=== PATIENT | male | born 1965 | race Caucasian/White ===

== ENCOUNTER 2016-09-27 16:12 | Emergency (ER) | payer MEDICAID ==
[2016-09-27 16:34] VITALS: RESP 16
[2016-09-27] MEDS ORDERED: NS 1,000 ML IV ONE (16:55)
[2016-09-27] MEDS ORDERED: ONDANSETRON 4 MG/2 ML VIAL IVP ONE (16:55)
[2016-09-27] MEDS ORDERED: fentaNYL 100 MCG/2 ML INJ IVP ONE ×2 (17:05→18:24)
[2016-09-27] MEDS ORDERED: methylPREDNISolone SOD SUCC 125 MG/2 ML VIAL IVP ONE (17:06)
--- NOTE | 2016-09-27 17:11 | EDPHY ---
H & P Stated Complaint: LLQ abd pain, hx ulcerative cholitis, blood in stool Source: Patient Exam Limitations: No limitations - Personal History Current Tetanus/Diphtheria Vaccine: Yes Current Tetanus Diphtheria and Acellular Pertussis (TDAP): Yes Tetanus Vaccine Date: 2012 - Medical/Surgical History Hx Asthma: No Hx Chronic Respiratory Disease: No Hx Diabetes: No Hx Cardiac Disease: No Hx Renal Disease: No Hx Cirrhosis: No Hx Alcoholism: No Hx HIV/AIDS: No Hx Splenectomy or Spleen Trauma: No Other PMH: Ulcerative coliitis, anxiety, chronic pain, clavicle fx, hernia repair - Social History Smoking Status: Never smoked Time Seen by Provider: 09/27/16 16:55 HPI/ROS: CHIEF COMPLAINT: Abdominal pain HISTORY OF PRESENT ILLNESS: Patient complains of 1-2 days of lower abdominal pain. Gradual onset. Constant duration. Severe pain at this time. Radiates through to the back. Worse with palpation or movement. Also worse with attempted bowel movements. Mild cramping sensation and tenesmus. Some blood in the stool occasionally. No fever or chills. No urinary complaints. History of ulcerative colitis flare several months ago. He does have prednisone for flare, but he lost it thus he has not started it. He takes as a call routinely. Does not have a GI physician here in [place] as he recently moved here and is awaiting appointment next month. No other medical diagnoses. No other associated complaints or modifying factors. PREVIOUS ABDOMINAL SURGERIES/DIAGNOSES: Ulcerative colitis. No abdominal surgeries. Last colonoscopy 3 years ago with polyps and diverticula. REVIEW OF SYSTEMS: Ten systems reviewed and are negative unless otherwise noted in the HPI EXAMINATION: General Appearance: Alert, no distress Head: normocephalic, atraumatic Eyes: Pupils equal and round, no conjunctival pallor or injection ENT, Mouth: Mucous membranes moist Neck: Normal inspection, supple, non-tender Respiratory: Lungs are clear to auscultation. No wheezing, rhonchi or crackles. Cardiovascular: Regular rate and rhythm. No murmur. Pulses intact distally. Gastrointestinal: Abdomen is soft. Tender in the lower quadrants. No rigidity. No distention. No tympany. No CVA tenderness. Voluntary guarding in the lower quadrants Back: non-tender, no bony abnormalities Neurological: A&O, nonfocal, normal gait. GCS 15. Skin: Warm and dry, no rash Extremities: Nontender, no pedal edema Psychiatric: Mood and affect normal DIFFERENTIAL DIAGNOSES: Including but not limited to ulcerative colitis flare, diverticulitis, colitis, enteritis, ureterolithiasis, acute abdomen MDM: 5:07 p.m. Lower abdominal pain of 2 days duration. Examination history suggest ulcerative colitis versus diverticulitis. CT scan, IV fluids, laboratory studies have been ordered. He is in no acute distress. Nonacute abdomen. 6:00 p.m. Laboratory studies are within normal limits. The CT scan is pending. 6:09 p.m. Contacted by radiologist Dr. Parra regarding CT scan of the abdomen and pelvis. He reports some thickening of the transverse and partially of the descending colon. No perforation. No abscess. 6:24 p.m. I have re-evaluated the patient. His pain is not changed. I have ordered a 2nd dose of pain medication. I offered admission for pain control and likely for IV steroid. He has declined. He prefers to be discharged home. He is capable making the decisions and we did discuss risks, benefits and alternatives. I will page GI to discuss outpatient management. 6:38 p.m. I discussed the case with on-call GI physician Dr. Zimmerman. I informed her of the patient's complaint, laboratory studies, vital signs and findings on the CT scan of the abdomen and pelvis. I informed her that I offered admission to the patient but he has declined. I requested outpatient management. She recommends that the patient take a prednisone steroid taper. This would be 40 mg once daily for 7 days, decreasing by 10 mg per week. She also recommends checking his C diff if possible. I discussed this with the patient and he declines the C diff test as he has not had any diarrhea today, nor does he want to stay for the test. I informed him that he could return to the emergency department should he change his mind. We would here to the recommendations of steroids, and he will be referred to her clinic for outpatient care. He is discharged home in stable condition with a prescription for pain medication from previous physician. ED Precautions: Worsening pain. Fever. Bloody stools. Bloody emesis. Constipation or diarrhea. SUPERVISION: Patient was evaluated in conjunction with the supervising physician. Please see their note for details. (Jaxon Amaral) Constitutional: Initial Vital Signs Temperature (C) 36.9 C 09/27/16 16:32 Heart Rate 78 09/27/16 16:32 Respiratory Rate 16 09/27/16 16:32 Blood Pressure 165/95 H 09/27/16 16:32 O2 Sat (%) 97 09/27/16 16:32 O2 Delivery Mode Room Air Allergies/Adverse Reactions: morphine Allergy (Unknown, Verified 08/19/15 12:29) Home Medications: Medication Instructions Recorded Mesalamine [Asacol 400 mg] 04/08/14 methylPREDNISolone [Medrol Dose 1 each PO AD #1 ea 03/28/16 Marvin] predniSONE [predniSONE TAPER] 10 mg PO AD #70 ea 09/27/16 Medical Decision Making ED Course/Re-evaluation: I did not see this patient while he was in the emergency department. However his care was discussed with the PA while the patient was in the department. I agree with treatment plan and management (Emanuel eBckford) Other Provider: I was not involved in the care of this patient, Dr Beckford was the supervising physician. (Jane Maldonado) - Data Points Laboratory Results: Laboratory Results 09/27/16 17:15 09/27/16 17:15 Medications Given: Discontinued Medications Fentanyl (Sublimaze) 100 mcg IVP EDNOW ONE Stop: 09/27/16 17:06 Last Admin: 09/27/16 17:38 Dose: 100 mcg Fentanyl (Sublimaze) 100 mcg IVP EDNOW ONE Stop: 09/27/16 18:25 Last Admin: 09/27/16 18:27 Dose: 100 mcg Sodium Chloride (Ns) 1,000 mls @ 0 mls/hr IV ONCE ONE PRN Reason: Wide Open Stop: 09/27/16 16:56 Last Admin: 09/27/16 17:24 Dose: 1,000 mls Methylprednisolone Sodium Succinate (Solu-Medrol) 125 mg IVP EDNOW ONE Stop: 09/27/16 17:07 Last Admin: 09/27/16 17:38 Dose: 125 mg Ondansetron HCl (Zofran) 4 mg IVP EDNOW ONE Stop: 09/27/16 16:56 Last Admin: 09/27/16 17:38 Dose: 4 mg Departure - Departure Disposition: Home, Routine, Self-Care Clinical Impression: Colitis Condition: Good Instructions: Ulcerative Colitis (ED), Colitis (ED) Additional Instructions: Steroids as discussed. Contact GI physician in the morning for definitive care. Return here for any onset of diarrhea, fever or worsening pain Referrals: Kris Tejeda MD [Primary Care Provider] - As per Instructions Brenda Zimmerman MD [Medical Doctor] - As per Instructions Prescriptions: predniSONE [predniSONE TAPER] 10 mg PO AD #70 ea
[2016-09-27 17:32] LABS: % IMMATURE GRANULYOCYTES 0.4 % (0.0-1.1); ABSOLUTE IMMATURE GRANULOCYTES 0.03 10^3/uL (0.00-0.10); ADD DIFF? NO; ADD MORPH? NO; ADD SCAN? NO; ATYPICAL LYMPHOCYTE FLAG 10 (0-99); FRAGMENT RBC FLAG 0 (0-99); HEMATOCRIT 43.8 % (40.0-51.0); HEMOGLOBIN 15.5 g/dL (13.7-17.5); LEFT SHIFT FLG 0 (0-99); LIPEMIA HEMOLYSIS FLAG 90 (0-99); MEAN CELL HEMOGLOBIN 33.8 pg (27.9-34.1); MEAN CELL HEMOGLOBIN CONCENTR. 35.4 g/dL (32.4-36.7); MEAN CELL VOLUME 95.6 fL (81.5-99.8); MEAN PLATELET VOLUME 10.2 fL (8.7-11.7); PLATELET CLUMPS FLAG 10 (0-99); PLATELET COUNT 228 10^3/uL (150-400); RED BLOOD CELL COUNT 4.58 10^6/uL (4.40-6.38); RED CELL DISTRIBUTION WIDTH 12.6 % (11.5-15.2)
[2016-09-27 17:39] LABS: ALANINE AMINOTRANSFERASE 25 IU/L (21-72); ALBUMIN 4.6 g/dL (3.5-5.0); ALKALINE PHOSPHATASE 69 IU/L (38-126); ANION GAP 11 mEq/L (8-16); ASPARTATE AMINOTRANSFERASE 23 IU/L (17-59); BILIRUBIN,TOTAL 1.2 mg/dL (0.1-1.4); BILIRUBIN-CONJUGATED 0.4 mg/dL (0.0-0.5); BILIRUBIN-UNCONJUGATED 0.8 mg/dL (0.0-1.1); CALCIUM 9.2 mg/dL (8.5-10.4); CARBON DIOXIDE 25 mEq/l (22-31); CHLORIDE 105 mEq/L (97-110); GLOMERULAR FILTRATION RATE > 60; GLUCOSE 103 mg/dL (70-100); POTASSIUM 4.1 mEq/L (3.5-5.2); SODIUM 141 mEq/L (134-144); TOTAL PROTEIN 7.1 g/dL (6.3-8.2)
[2016-09-27] MEDS ORDERED: IOPAMIDOL (ISOVUE-300) 100 ML BTL ONE (17:43)
[2016-09-27 19:20] VITALS: BP 125/74; PULSE 81; TEMP 97.9; O2SAT 95
== END 2016-09-27 19:19 | disposition home or self-care (01) ==
DX: K52.9 Noninfective gastroenteritis and colitis, unspecified (principal)
CPT/HCPCS: 82947-QW; 96374; J2405; J3010; Q9967

== ENCOUNTER 2016-09-29 20:22 | Inpatient (IN) | payer MEDICAID ==
[2016-09-29] MEDS ORDERED: ONDANSETRON 4 MG/2 ML VIAL IVP ONE ×2 (20:40→22:47)
[2016-09-29] MEDS ORDERED: methylPREDNISolone SOD SUCC 40 MG/ML VIAL IVP ONE (21:47)
[2016-09-29] MEDS ORDERED: NS 1,000 ML IV ONE (21:47)
[2016-09-29] MEDS ORDERED: LORazepam 2 MG/ML INJ IM ONE (21:48)
--- NOTE | 2016-09-29 21:51 | EDPHY ---
H & P Stated Complaint: LLQ abd pain- hx of UC - Personal History Tetanus Vaccine Date: 2012 - Medical/Surgical History Hx Asthma: No Hx Chronic Respiratory Disease: No Hx Diabetes: No Hx Cardiac Disease: No Hx Renal Disease: No Hx Cirrhosis: No Hx Alcoholism: No Hx HIV/AIDS: No Hx Splenectomy or Spleen Trauma: No Other PMH: Ulcerative coliitis, anxiety, chronic pain, clavicle fx, hernia repair - Social History Smoking Status: Never smoked Time Seen by Provider: 09/29/16 21:27 HPI/ROS: CHIEF COMPLAINT: continued left lower quadrant abdominal pain HISTORY OF PRESENT ILLNESS: 51-year-old male, homeless, history of ulcerative colitis complaining of continued left lower quadrant abdominal pain. He was seen emergency department 48 hours ago for same complaint which point he had CT imaging, reports available in packs. At that time he was offered admission but declined. He returns to the [facility] today stating I should have stayed in the hospital. He has continued abdominal pain, nausea, vomiting, diarrhea. REVIEW OF SYSTEMS: A ten point review of systems was performed and is negative with the exception of the items mentioned in the HPI PAST MEDICAL & SURGICAL HISTORY: Ulcerative colitis SOCIAL HISTORY: homeless. PHYSICAL EXAM (Prior to examination, patient consented to physical exam, hands were washed and my usual and customary physical exam procedures followed) 1) GENERAL: Well-developed, well-nourished, alert and oriented. Appears uncomfortable, crying. 2) HEAD: Normocephalic, atraumatic 3) HEENT: Pupils equal, round, reactive to light bilaterally. Sclera anicteric. 4) NECK: Full range of motion, no meningeal signs. 5) LUNGS: Clear auscultation bilaterally, no wheezes, no rhonchi, no retractions. 6) HEART: Regular rate and rhythm, no murmur, no heave, no gallop. 7) ABDOMEN: Guarding abdomen tender to palpation left lower quadrant, 8) MUSCULOSKELETAL: Moving all extremities, no focal areas of tenderness, no obvious trauma. No peripheral edema or discoloration. 9) BACK: No CVA tenderness, no midline vertebral tenderness, no fluctuance, no step-off, no obvious trauma, no visual or palpable abnormality. 10) SKIN: No rash, no petechiae. 11) : Normal male external genitalia bilateral testicles nontender bilateral cremasteric reflex present and brisk with no high-riding testicle.. DIFFERENTIAL DIAGNOSIS: in no particular order (Jayant Webster) Constitutional: Initial Vital Signs Temperature (C) 36.9 C 09/29/16 20:28 Heart Rate 94 09/29/16 20:28 Respiratory Rate 20 09/29/16 20:28 Blood Pressure 169/103 H 09/29/16 20:28 O2 Sat (%) 92 09/29/16 20:28 O2 Delivery Mode Room Air Allergies/Adverse Reactions: morphine Allergy (Unknown, Verified 09/29/16 20:28) Home Medications: Medication Instructions Recorded Mesalamine [Asacol 400 mg] 04/08/14 methylPREDNISolone [Medrol Dose 1 each PO AD #1 ea 03/28/16 Marvin] predniSONE [predniSONE TAPER] 10 mg PO AD #70 ea 09/27/16 Medical Decision Making ED Course/Re-evaluation: 10:14 p.m.: Phone consultation with hospitalist Dr. Diaz who will admit patient (Jayant Webster) Other Provider: PHYSICIAN DOCUMENTATION: The patient was evaluated and managed by the Physician Car Varnisher and myself. I have reviewed the chart and agree with the findings and plan of care as documented. In addition, I examined the patient myself at 2142. History confirmed as history of ulcerative colitis, here 2 days ago and was recommended admission but declined. Physical findings as follows: Mild abdominal tenderness but no rebound or guarding. Dr. Maldonado note from 2 days ago personally reviewed. Apparently she discussed with Dr. Zimmerman who recommended admission for pain control and IV steroids. Admission tonight, patient is amenable. I am the secondary supervising physician. (Juventino Villalobos) - Data Points Laboratory Results: Laboratory Results 09/29/16 20:25 09/29/16 20:25 09/29/16 09/29/16 20:25 20:25 WBC 8.47 10^3/uL 10^3/uL (3.80-9.50) RBC 4.90 10^6/uL 10^6/uL (4.40-6.38) Hgb 16.3 g/dL g/dL (13.7-17.5) Hct 46.8 % % (40.0-51.0) MCV 95.5 fL fL (81.5-99.8) MCH 33.3 pg pg (27.9-34.1) MCHC 34.8 g/dL g/dL (32.4-36.7) RDW 12.6 % % (11.5-15.2) Plt Count 280 10^3/uL D 10^3/uL (150-400) MPV 10.5 fL fL (8.7-11.7) Neut % (Auto) 75.0 % H % (39.3-74.2) Lymph % (Auto) 19.8 % % (15.0-45.0) Hamlin % (Auto) 3.4 % L % (4.5-13.0) Eos % (Auto) 0.4 % L % (0.6-7.6) Baso % (Auto) 1.2 % % (0.3-1.7) Nucleat RBC Rel Count 0.0 % % (0.0-0.2) Absolute Neuts (auto) 6.35 10^3/uL 10^3/uL (1.70-6.50) Absolute Lymphs (auto) 1.68 10^3/uL 10^3/uL (1.00-3.00) Absolute Monos (auto) 0.29 10^3/uL L 10^3/uL (0.30-0.80) Absolute Eos (auto) 0.03 10^3/uL 10^3/uL (0.03-0.40) Absolute Basos (auto) 0.10 10^3/uL 10^3/uL (0.02-0.10) Absolute Nucleated RBC 0.00 10^3/uL 10^3/uL (0-0.01) Immature Gran % 0.2 % % (0.0-1.1) Immature Gran # 0.02 10^3/uL 10^3/uL (0.00-0.10) Sodium 149 mEq/L H mEq/L (134-144) Potassium 4.2 mEq/L mEq/L (3.5-5.2) Chloride 108 mEq/L mEq/L (97-110) Carbon Dioxide 21 mEq/l L mEq/l (22-31) Anion Gap 20 mEq/L H mEq/L (8-16) BUN 12 mg/dL mg/dL (7-23) Creatinine 1.1 mg/dL mg/dL (0.7-1.3) Estimated GFR > 60 Glucose 124 mg/dL H mg/dL (70-100) Calcium 9.6 mg/dL mg/dL (8.5-10.4) Total Bilirubin 0.7 mg/dL mg/dL (0.1-1.4) Conjugated Bilirubin 0.5 mg/dL mg/dL (0.0-0.5) Unconjugated Bilirubin 0.2 mg/dL mg/dL (0.0-1.1) AST 24 IU/L IU/L (17-59) ALT 21 IU/L IU/L (21-72) Alkaline Phosphatase 88 IU/L IU/L (38-126) Total Protein 7.8 g/dL g/dL (6.3-8.2) Albumin 5.1 g/dL H g/dL (3.5-5.0) Lipase 191.0 IU/L IU/L (23-300) Medications Given: Discontinued Medications Sodium Chloride (Ns) 1,000 mls @ 0 mls/hr IV ONCE ONE PRN Reason: Wide Open Stop: 09/29/16 21:48 Last Admin: 09/29/16 22:23 Dose: 1,000 mls Methylprednisolone Sodium Succinate (Solu-Medrol) 80 mg IVP EDNOW ONE Stop: 09/29/16 21:48 Last Admin: 09/29/16 22:22 Dose: 80 mg Ondansetron HCl (Zofran) 4 mg IVP EDNOW ONE Stop: 09/29/16 20:41 Last Admin: 09/29/16 20:45 Dose: 4 mg Departure - Departure Disposition: [facility] Clinical Impression: Ulcerative colitis Qualifiers: Ulcerative colitis location: ulcerative rectosigmoiditis Digestive disease complication type: without complication Qualified Code(s): K51.30 - Ulcerative ( chronic) rectosigmoiditis without complications Condition: Fair
[2016-09-29 21:56] LABS: % IMMATURE GRANULYOCYTES 0.2 % (0.0-1.1); ABSOLUTE IMMATURE GRANULOCYTES 0.02 10^3/uL (0.00-0.10); ADD DIFF? NO; ADD MORPH? NO; ADD SCAN? NO; ATYPICAL LYMPHOCYTE FLAG 0 (0-99); FRAGMENT RBC FLAG 0 (0-99); HEMATOCRIT 46.8 % (40.0-51.0); HEMOGLOBIN 16.3 g/dL (13.7-17.5); LEFT SHIFT FLG 0 (0-99); LIPEMIA HEMOLYSIS FLAG 90 (0-99); MEAN CELL HEMOGLOBIN 33.3 pg (27.9-34.1); MEAN CELL HEMOGLOBIN CONCENTR. 34.8 g/dL (32.4-36.7); MEAN CELL VOLUME 95.5 fL (81.5-99.8); MEAN PLATELET VOLUME 10.5 fL (8.7-11.7); PLATELET CLUMPS FLAG 0 (0-99); PLATELET COUNT 280 10^3/uL (150-400); RED CELL DISTRIBUTION WIDTH 12.6 % (11.5-15.2)
[2016-09-29 21:57] LABS: ALANINE AMINOTRANSFERASE 21 IU/L (21-72); ALBUMIN 5.1 g/dL (3.5-5.0); ALKALINE PHOSPHATASE 88 IU/L (38-126); ANION GAP 20 mEq/L (8-16); ASPARTATE AMINOTRANSFERASE 24 IU/L (17-59); BILIRUBIN,TOTAL 0.7 mg/dL (0.1-1.4); BILIRUBIN-CONJUGATED 0.5 mg/dL (0.0-0.5); BILIRUBIN-UNCONJUGATED 0.2 mg/dL (0.0-1.1); CALCIUM 9.6 mg/dL (8.5-10.4); CARBON DIOXIDE 21 mEq/l (22-31); CHLORIDE 108 mEq/L (97-110); CREATININE 1.1 mg/dL (0.7-1.3); GLOMERULAR FILTRATION RATE > 60; GLUCOSE 124 mg/dL (70-100); POTASSIUM 4.2 mEq/L (3.5-5.2); SODIUM 149 mEq/L (134-144); TOTAL PROTEIN 7.8 g/dL (6.3-8.2)
[2016-09-29] MEDS ORDERED: ACETAMINOPHEN 325 MG TAB PO PRN (22:33)
[2016-09-29] MEDS ORDERED: PROMETHAZINE HCL 25 MG/ML INJ IVP PRN (22:33)
[2016-09-29] MEDS ORDERED: HYDROmorphONE/DILAUDID 1 MG/ML SYR IVP ONE (22:47)
--- NOTE | 2016-09-29 23:13 | GHP ---
[f rep st] HISTORY AND PHYSICAL DATE OF ADMISSION: 09/29/2016 CHIEF COMPLAINT: Abdominal pain. HISTORY OF PRESENT ILLNESS: This is a 51-year-old male with history of ulcerative colitis and chron ic opioid dependence, who presented to the emergency department on 09/27/2016 with abdominal pain. The patient was offered admission, but decided to leave. He was started on a Medrol Dosepak, which he says he filled and has not been helping. Over the past day, he reports worsening severe pain in his left lower abdomen and rectum. It is ass ociated with some chills and fatigue. He denies any fever. Three days ago, he had some loose bowel movements and passed some blood, but has not been having diarrhea since. He has been vomiting. Interestingly enough, he has been out of his fentanyl for the past few days. He is taking oxycodone sparingly. He says he ran out of fentanyl since the patches have "been falling off." PAST MEDICAL HISTORY: 1. Ulcerative colitis diagnosed at [facility]. 2. Chronic opioid dependence due to left clavicle fracture that happened 2-1/2 years ago. PAST SURGICAL HISTORY: Denies. HOME MEDICATIONS: Refer to [facility] for details. ALLERGIES: Morphine. SOCIAL HISTORY: Patient is engaged. He denies any alcohol, tobacco, or illicit drug use. FAMILY HISTORY: Reviewed and noncontributory. REVIEW OF SYSTEMS: Comprehensive 10-point review of systems was done and is negative except for as mentioned in the HPI. PHYSICAL EXAM: VITAL SIGNS: Blood pressure 169/103, pulse 94, respiratory rate 20, O2 saturation 9 2% on room air, temperature afebrile. GENERAL: No acute distress. HEAD: Normocephalic, atraumati c. EYES: PERRLA. Sclerae anicteric. MOUTH: Moist mucous membranes. NECK: Supple. No lymphade nopathy. CARDIOVASCULAR: S1-S2. No JVD. No lower extremity edema. PULMONARY: Lungs are clear. No wheezes, rales, or rhonchi. ABDOMEN: Soft, nondistended. There is tenderness in all 4 quadran ts without rebound or guarding. Bowel sounds are diminished. EXTREMITIES: No clubbing or cyanosis . NEURO: Cranial nerves 2-12 grossly intact. No focal motor or sensory deficits. DIAGNOSTICS: WBCs 8.4, hemoglobin 16.3, hematocrit 46.8, platelets 280. Sodium 149, potassium 4.2 chloride 108, CO2 21, BUN 12, creatinine 1.1, anion gap is 20, glucose 124. LFTs unremarkable. ASSESSMENT AND PLAN: This is a 51-year-old male with history of ulcerative colitis presenting with: 1. Acute abdominal pain. Unclear etiology. Differential includes ulcerative colitis flare versus other. Plan: The patient will be watched overnight. If his abdominal exam worsens or if his pain worsens, I think it would be reasonable to obtain a CT of his abdomen and pelvis. At this point, I think it is fair to hold off given the fact that he is afebrile with normal white count. We will ch blake inflammatory markers in the morning. I have not called GI since there is no potato peeler listed to be pupil personnel worker. 2. Hypernatremia likely due to dehydration. Plan: Start hypotonic fluids and monitor. 3. Mild metabolic acidosis. CO2 of 21 and gap of 20. Plan: Start IV fluids and repeat chemistry in the morning. 4. History of opioid dependency in the setting of recently running out of his fentanyl. Plan: will resume his home dose of Duragesic patch, as well as oxycodone. His pain may be a result of opiate withdrawal. 5. Chronic left clavicle fracture. Plan: Recommend outpatient followup with Orthopedics for repai r as scheduled. 6. The patient is low risk for venous thromboembolism, and I have recommended ambulation and sequen tial compression devices while in bed. /[id number]/MODL
[2016-09-29] MEDS: 1/2 NS 1,000 ML IV SCH (23:53)
[2016-09-29] MEDS: oxyCODONE IR 5 MG TAB PO PRN (23:53)
[2016-09-30] MEDS: LORazepam 0.5 MG TAB PO PRN ×2 (00:14→02:27)
[2016-09-30] MEDS: fentaNYL 25 MCG PATCH TD SCH ×2 (00:22→17:26)
[2016-09-30] MEDS: oxyCODONE IR 5 MG TAB PO PRN ×3 (02:27→15:03)
[2016-09-30 04:48] LABS: % IMMATURE GRANULYOCYTES 0.4 % (0.0-1.1); ABSOLUTE IMMATURE GRANULOCYTES 0.02 10^3/uL (0.00-0.10); ADD DIFF? NO; ADD MORPH? NO; ADD SCAN? NO; ATYPICAL LYMPHOCYTE FLAG 0 (0-99); FRAGMENT RBC FLAG 0 (0-99); HEMATOCRIT 44.5 % (40.0-51.0); HEMOGLOBIN 15.6 g/dL (13.7-17.5); LEFT SHIFT FLG 0 (0-99); LIPEMIA HEMOLYSIS FLAG 90 (0-99); MEAN CELL HEMOGLOBIN 33.5 pg (27.9-34.1); MEAN CELL HEMOGLOBIN CONCENTR. 35.1 g/dL (32.4-36.7); MEAN CELL VOLUME 95.5 fL (81.5-99.8); MEAN PLATELET VOLUME 10.1 fL (8.7-11.7); PLATELET CLUMPS FLAG 10 (0-99); PLATELET COUNT 237 10^3/uL (150-400); RED BLOOD CELL COUNT 4.66 10^6/uL (4.40-6.38); RED CELL DISTRIBUTION WIDTH 12.5 % (11.5-15.2)
[2016-09-30 05:00] LABS: ANION GAP 16 mEq/L (8-16); C-REACTIVE PROTEIN < 5.0 mg/L (<10.0); CALCIUM 8.6 mg/dL (8.5-10.4); CARBON DIOXIDE 20 mEq/l (22-31); CHLORIDE 107 mEq/L (97-110); CREATININE 0.9 mg/dL (0.7-1.3); GLOMERULAR FILTRATION RATE > 60; GLUCOSE 133 mg/dL (70-100); POTASSIUM 4.3 mEq/L (3.5-5.2); SODIUM 143 mEq/L (134-144)
[2016-09-30 05:42] LABS: SEDIMENTATION RATE 5 MM/HR (0-15)
--- NOTE | 2016-09-30 08:29 | HOSPPROG ---
Hospitalist Progress Note Assessment/Plan: #Acute on chronic abdominal -due to acute Crohn's flare. CT 09/27 with colitis involving transverse/ descending colon -pain improved overnight with IV Solumedrol -discussed case with GI. If pain persists and negative GI panel, will proceed with scope -check GI PCR #Chronic opioid use -Fentanyl for clavicle fracture #Hypernatremia: resolved. due to dehydration #Diet: ADAT #DVT ppx: low-rsik, ambulating #Disp: warrants inpt admission with ongoing pain requiring IV steroids, IVFs Subjective: still c/o LLQ pain. No BM Objective: Vital Signs Temp Pulse Resp BP Pulse Ox 36.5 C 93 16 116/75 96 09/30/16 08:21 09/30/16 08:21 09/30/16 08:21 09/30/16 08:21 09/30/16 08:21 Laboratory Results 09/30/16 04:21 09/30/16 04:21 09/29/16 09/30/16 10/01/16 05:59 05:59 05:59 Intake Total 1650 Output Total 800 Balance 850 - Physical Exam Constitutional: no apparent distress Eyes: PERRL Ears, Nose, Mouth, Throat: moist mucous membranes Cardiovascular: regular rate and rhythym Respiratory: no respiratory distress, no rales or rhonchi Gastrointestinal: normoactive bowel sounds, tenderness (greater in LLQ. Mild guarding, no rebound) Genitourinary: no bladder fullness Skin: warm Musculoskeletal: full muscle strength Neurologic: AAOx3, CN II-XII Intact Psychiatric: interacting appropriately ICD10 Worksheet Patient Problems: Problems Problem Status Onset Ulcerative colitis Acute Abscess Acute Methicillin resistant Staphylococcus aureus infection Acute
[2016-09-30] MEDS: methylPREDNISolone SOD SUCC 40 MG/ML VIAL IVP SCH ×2 (08:37→19:57)
[2016-09-30] MEDS: 1/2 NS 1,000 ML IV SCH ×2 (08:42→17:30)
[2016-09-30] MEDS: HYDROmorphONE/DILAUDID 1 MG/ML SYR IVP PRN ×3 (10:43→19:58)
[2016-09-30] MEDS ORDERED: NON-FORMULARY NEW DRUG (Ranitidine Hcl [Zantac] 150 MG) PO PRN (12:58)
[2016-09-30] MEDS ORDERED: Herbals/Supplements -Info Only PO SCH (13:00)
[2016-09-30] MEDS ORDERED: FAMOTIDINE 20 MG TAB PO PRN (13:03)
[2016-10-01] MEDS: HYDROmorphONE/DILAUDID 1 MG/ML SYR IVP PRN ×3 (00:06→20:02)
[2016-10-01] MEDS: 1/2 NS 1,000 ML IV SCH (03:11)
[2016-10-01 05:00] LABS: ANION GAP 8 mEq/L (8-16); CARBON DIOXIDE 25 mEq/l (22-31); CHLORIDE 104 mEq/L (97-110); CREATININE 0.7 mg/dL (0.7-1.3); GLOMERULAR FILTRATION RATE > 60; GLUCOSE 128 mg/dL (70-100); POTASSIUM 4.4 mEq/L (3.5-5.2); SODIUM 137 mEq/L (134-144)
--- NOTE | 2016-10-01 08:56 | HOSPPROG ---
Hospitalist Progress Note Assessment/Plan: #Acute on chronic abdominal -due to acute Crohn's flare. CT 09/27 with colitis involving transverse/ descending colon -pain improved overnight with IV Solumedrol -discussed case with GI. GI PCR pending -Plan for scope in morning #Chronic opioid use -Fentanyl for clavicle fracture #Hypernatremia: resolved. due to dehydration #Diet: ADAT #DVT ppx: low-rsik, ambulating #Disp: warrants inpt admission with ongoing pain requiring IV steroids, IVFs Subjective: pain improved with IV steroids Objective: Vital Signs Temp Pulse Resp BP Pulse Ox 36.3 C 58 L 16 116/76 99 10/01/16 08:23 10/01/16 08:23 10/01/16 08:23 10/01/16 08:23 10/01/16 08:23 Laboratory Results 09/30/16 04:21 10/01/16 04:13 09/30/16 10/01/16 10/02/16 05:59 05:59 05:59 Intake Total 1650 3431 Output Total 800 Balance 850 3431 - Physical Exam Constitutional: no apparent distress Eyes: PERRL Ears, Nose, Mouth, Throat: moist mucous membranes Cardiovascular: regular rate and rhythym, no murmur, rub, or gallop Respiratory: no respiratory distress, no rales or rhonchi Gastrointestinal: normoactive bowel sounds, other (mild left lower quadrant) Genitourinary: no bladder fullness Skin: warm Musculoskeletal: full muscle strength Neurologic: AAOx3 Psychiatric: interacting appropriately ICD10 Worksheet Patient Problems: Problems Problem Status Onset Ulcerative colitis Acute Abscess Acute Methicillin resistant Staphylococcus aureus infection Acute
[2016-10-01] MEDS ORDERED: NON-FORMULARY NEW DRUG (Vitamin B Complex [Super B-50 Complex] 1 EACH) PO SCH (09:00)
[2016-10-01] MEDS: methylPREDNISolone SOD SUCC 40 MG/ML VIAL IVP SCH ×2 (10:20→21:42)
[2016-10-01] MEDS ORDERED: GOLYTELY 4000 ML BTL PO ONE ×2 (13:03→16:15)
--- NOTE | 2016-10-01 13:49 | GCON ---
[f rep st] CONSULTATION DATE OF CONSULTATION: 10/01/2016 CHIEF COMPLAINT: Abdominal pain. HISTORY OF PRESENT ILLNESS: I am asked to see the patient in consultation by Dr. Light for a chief complaint of abdominal pain. The patient is a 51-year-old with a long history of ulcerative coliti s, originally diagnosed in 1994 per his history although we have no old records. He states that it has mostly been left-sided. He states that every time they tried to do a colonoscopy, they have not been able to do a full colonoscopy. His last colonoscopy was in 2009. He gets flares about every couple months, which he treats with mesalamine. He has been on prednisone in the past. He also jesus alberto cribes being treated with enemas and suppositories, which he felt has worked well previously. Patient presented to the emergency room earlier this week with abdominal pain. CT scan showed nonsp ecific colitis involving the transverse and descending colon. He was treated with prednisone, howev er, failed and returned with increasing abdominal pain. He has been having initially some loose sto ols, but now he has had no bowel movement for 4 days. He did note some bright red blood with his la st bowel movement. No fevers or chills. He has abdominal pain, primarily epigastric radiating to t he left side and down into his left pelvis. He is passing gas. He has had some nausea originally, which is now improved. ALLERGIES: Morphine. MEDICATIONS: Mesalamine. He takes Asacol, recently taking 800 mg tabs 2 daily. He takes multivita mins, ranitidine, Zofran, fentanyl, oxycodone, and recently placed on prednisone 40 mg daily. PAST MEDICAL HISTORY: 1. Ulcerative colitis diagnosed in 1994 in [place]. 2. Chronic pain and opioid dependent. SOCIAL HISTORY: Patient is engaged. Denies tobacco or alcohol use. FAMILY HISTORY: Negative for ulcerative colitis or Crohn disease. REVIEW OF SYSTEMS: I have performed a complete review of systems, which is negative except for the pertinent positives and negatives as noted above in the HPI. PHYSICAL EXAM: VITAL SIGNS: Afebrile at 36.3, BP 116/76, pulse 58. GENERAL: He is alert and orie nted. EYES: No scleral icterus. HENT: No oral lesions. CARDIOVASCULAR: Regular rate and rhythm . CHEST: Clear to auscultation. ABDOMEN: Positive bowel sounds. Soft, but tender in the left si de. No rebound. NEUROLOGIC: Nonfocal. SKIN: No obvious lesions. LABORATORY DATA: White count of 5, hematocrit 44.5, platelets of 237. Sed rate is not elevated; it is 5. BUN creatinine are 12 and 0.7. Glucose 128. Lipase 191. CT scan as per the HPI. ASSESSMENT: Patient with a history of ulcerative colitis, presenting with abdominal pain, diarrhea, and bleeding, consistent with flare that failed outpatient trial of steroids. The patient does not have a box car checker in this area yet. He is overdue for a colonoscopy. Attempts were made t o obtain stool studies for infectious causes, but patient has been unable to provide any samples. H e is having ongoing pain and therefore would recommend colonoscopy for evaluation. PLAN: We will prep for colon in the morning with biopsy. Continue Solu-Medrol. May need to consid er step-up therapy as guided by endoscopic findings. Thank you for this consult. /[id number]/MODL
[2016-10-01] MEDS: ONDANSETRON 4 MG/2 ML VIAL IVP PRN (14:24)
[2016-10-01] MEDS: VITAMIN B COMPLEX 1 EA CAP/TAB PO SCH (16:15)
[2016-10-01] MEDS: oxyCODONE IR 5 MG TAB PO PRN (21:41)
[2016-10-02] MEDS: HYDROmorphONE/DILAUDID 1 MG/ML SYR IVP PRN ×4 (00:13→21:03)
[2016-10-02 05:46] LABS: HEMATOCRIT 43.3 % (40.0-51.0); HEMOGLOBIN 15.1 g/dL (13.7-17.5); MEAN CELL HEMOGLOBIN 33.3 pg (27.9-34.1); MEAN CELL HEMOGLOBIN CONCENTR. 34.9 g/dL (32.4-36.7); MEAN CELL VOLUME 95.6 fL (81.5-99.8); RED BLOOD CELL COUNT 4.53 10^6/uL (4.40-6.38); RED CELL DISTRIBUTION WIDTH 12.5 % (11.5-15.2)
[2016-10-02 06:00] LABS: ANION GAP 8 mEq/L (8-16); CARBON DIOXIDE 26 mEq/l (22-31); CHLORIDE 104 mEq/L (97-110); CREATININE 0.7 mg/dL (0.7-1.3); GLOMERULAR FILTRATION RATE > 60; GLUCOSE 127 mg/dL (70-100); POTASSIUM 4.2 mEq/L (3.5-5.2); SODIUM 138 mEq/L (134-144)
[2016-10-02] MEDS: VITAMIN B COMPLEX 1 EA CAP/TAB PO SCH (09:44)
[2016-10-02] MEDS: methylPREDNISolone SOD SUCC 40 MG/ML VIAL IVP SCH (09:44)
[2016-10-02] MEDS: 1/2 NS 1,000 ML IV SCH ×2 (09:46→20:54)
[2016-10-02] MEDS: ONDANSETRON 4 MG/2 ML VIAL IVP PRN ×2 (12:19→15:08)
--- NOTE | 2016-10-02 12:48 | HOSPPROG ---
Hospitalist Progress Note Assessment/Plan: #Acute on chronic abdominal: improving daily -due to acute Crohn's flare. CT 09/27 with colitis involving transverse/ descending colon -discussed case with GI. GI panel negative -scope today. Will base steroids on findings #Chronic opioid use -Fentanyl for clavicle fracture #Hypernatremia: resolved. due to dehydration #Diet: ADAT #DVT ppx: low-rsik, ambulating #Disp: warrants inpt admission with ongoing pain requiring IV steroids, IVFs Subjective: pain improved. Did have nausea/cramping with bowel prep Objective: Vital Signs Temp Pulse Resp BP Pulse Ox 36.4 C 50 L 18 101/68 95 10/02/16 08:22 10/02/16 08:22 10/02/16 08:22 10/02/16 08:22 10/02/16 08:22 Microbiology 10/01/16 17:58 Gastrointestinal Tract Panel (PCR) - Final Stool No Organism Detected Laboratory Results 10/02/16 05:06 10/02/16 05:06 10/01/16 10/02/16 10/03/16 05:59 05:59 05:59 Intake Total 3431 1000 Output Total 500 Balance 3431 500 - Physical Exam Constitutional: no apparent distress, other (thin) Eyes: PERRL Ears, Nose, Mouth, Throat: moist mucous membranes Cardiovascular: regular rate and rhythym, no murmur, rub, or gallop Respiratory: no respiratory distress, no rales or rhonchi Gastrointestinal: normoactive bowel sounds, other (mild LLQ pain with palp) Genitourinary: no bladder fullness Skin: warm Musculoskeletal: full muscle strength Neurologic: AAOx3, CN II-XII Intact Psychiatric: interacting appropriately ICD10 Worksheet Patient Problems: Problems Problem Status Onset Ulcerative colitis Acute Abscess Acute Methicillin resistant Staphylococcus aureus infection Acute
[2016-10-02] MEDS ORDERED: MIDAZOLAM 2 MG/2 ML VIAL ONE (12:59)
[2016-10-02] MEDS ORDERED: fentaNYL 100 MCG/2 ML INJ ONE (12:59)
--- NOTE | 2016-10-02 14:43 | GPN ---
[f rep st] PROCEDURE NOTE PROCEDURE: Colonoscopy with biopsy. PREOPERATIVE DIAGNOSIS: History of left-sided ulcerative colitis. POSTOPERATIVE DIAGNOSES: 1. Fairly normal appearing rectum with normal rectal mucosa, status post biopsy. 2. Atrophic changes with pseudopolyps throughout the left colon up to the splenic flexure, status p ost biopsy. 3. Fairly normal appearing right colon, status post biopsy. 4. Normal appearing terminal ileum. INDICATIONS: A 51-year-old male with history of ulcerative colitis diagnosed in 1994, reported to ad dutton left-sided. He reports his last colonoscopy was in 2009. He has typically treated his ulcerative colitis with topical therapy, Rowasa. He has been on prednisone in the past. He had presented to the emergency room where a CT scan that showed nonspecific colitis involving the transverse colon, d escending colon. He was treated with prednisone; however, he returned with complaints of abdominal pain. He was complaining of loose stool. He presents now for evaluation of disease activity. Patient was started on Solu-Medrol in the hospital without improvement. PHYSICAL EXAMINATION: VITAL SIGNS: Stable. LUNGS: Clear. CARDIAC: Normal S1, S2 without murmur . PERMIT: Procedure was explained to the patient. Risks and benefits of the procedure were outlined to the patient. Informed consent was obtained. PREOPERATIVE MEDICATIONS: 150 mcg of fentanyl and 6 of Versed. FINDINGS OF PROCEDURE: The patient was placed in the left lateral decubitus position. The GIF-180 video colonoscope was passed in the rectum under direct visualization to the terminal ileum. The te rminal ileum appeared normal. The colonoscope was withdrawn with inspection of colonic segments. T he cecum and ascending colon and hepatic flexure appeared normal. Random biopsies obtained of the r ight colon. From the distal transverse colon to the sigmoid colon there were atrophic changes with pseudo polyps . Random biopsies were taken in the left colon. Random biopsies were also taken in the rectum. Re troflex of the rectum was unremarkable. IMPRESSION: Predominantly left-sided mucosal changes with atrophic mucosal changes and pseudopolyps . No significant active disease identified. Status post right and left colon biopsies and rectal b iopsies. Changes consistent with ulcerative colitis or of inflammatory bowel disease without significant acti vity. RECOMMENDATIONS: 1. DC Solu-Medrol. 2. Clear liquid diet. Advance as tolerated to a regular diet. 3. Bentyl 10-20 mg every 6 hours as needed for crampy abdominal pain. 4. When eating and tolerating p.o. can discharge home. 5. The patient can follow up in the GI office. /[id number]/MODL
[2016-10-02] MEDS: DICYCLOMINE 20 MG TAB PO SCH ×2 (15:08→20:54)
[2016-10-02] MEDS: oxyCODONE IR 5 MG TAB PO PRN (19:21)
[2016-10-03] MEDS: fentaNYL 25 MCG PATCH TD SCH ×2 (00:52→10:29)
[2016-10-03] MEDS: HYDROmorphONE/DILAUDID 1 MG/ML SYR IVP PRN (05:32)
[2016-10-03] MEDS: ONDANSETRON 4 MG/2 ML VIAL IVP PRN (05:33)
[2016-10-03] MEDS: DICYCLOMINE 20 MG TAB PO SCH ×2 (05:33→12:50)
[2016-10-03 05:59] LABS: ANION GAP 5 mEq/L (8-16); CALCIUM 9.1 mg/dL (8.5-10.4); CARBON DIOXIDE 25 mEq/l (22-31); CHLORIDE 106 mEq/L (97-110); CREATININE 0.8 mg/dL (0.7-1.3); GLOMERULAR FILTRATION RATE > 60; GLUCOSE 98 mg/dL (70-100); POTASSIUM 3.9 mEq/L (3.5-5.2); SODIUM 136 mEq/L (134-144)
[2016-10-03 08:00] VITALS: BP 125/89; PULSE 55; RESP 18; TEMP 97.4; O2SAT 96
[2016-10-03] MEDS ORDERED: fentaNYL 25 MCG PATCH TD SCH (08:00)
--- NOTE | 2016-10-03 09:55 | SOAPPROG ---
SOAP Progress Note Assessment/Plan: Assessment: Ulcerative Colitis without active disease on colonoscopy yesterday. Biopsies pending. Scrotal infection, management per Hospitalist. Plan: 1. Resume PO Mesalamine, patient was on Asacol HD 800 mg PO BID. D/C steroids. 2. Regular diet 3. Dicyclomine 10 - 20 mg every 6 hours as needed for crampy abdominal pain 4. Ok for discharge from GI standpoint. Has scheduled follow up in our office. 5. Scrotal infection. Management per PCP and hospitalist. Will sign off, please call with further questions 10/03/16 09:58 Subjective: CC: Ulcerative colitis Had some crampy abdominal pain, no significant diarrhea. C/o discomfort in scrotum on the right side. Objective: Vital Signs Temp Pulse Resp BP Pulse Ox 36.3 C 55 L 18 125/89 H 96 10/03/16 07:56 10/03/16 07:56 10/03/16 07:56 10/03/16 07:56 10/03/16 07:56 Laboratory Results 10/02/16 05:06 10/03/16 05:27 10/02/16 10/03/16 10/04/16 05:59 05:59 05:59 Intake Total 1000 3050 250 Output Total 500 Balance 500 3050 250 Generic Name Dose Route Start Last Admin Trade Name Freq PRN Reason Stop Dose Admin Acetaminophen 650 mg 09/29/16 22:33 09/30/16 02:27 Tylenol PO 03/28/17 22:32 650 mg Q6 PRN Administration Pain, Mild/Fever, Can Take PO Dicyclomine HCl 20 mg 10/02/16 16:00 10/03/16 05:33 Bentyl PO 03/31/17 15:59 20 mg QID CLARIBEL Administration Famotidine 20 mg 09/30/16 13:03 Pepcid PO 03/29/17 13:02 BID PRN Acid reflux Fentanyl 25 mcg 09/29/16 23:45 10/03/16 00:52 Duragesic TD 10/09/16 23:44 25 mcg Q72H CLARIBEL Administration Hydromorphone HCl 0.2 mg 09/30/16 10:19 10/03/16 05:32 Dilaudid IVP 10/10/16 10:18 0.2 mg Q4 PRN Administration Pain, Severe Unable to Take PO Sodium Chloride 1,000 mls @ 125 mls/hr 09/29/16 23:00 10/02/16 20:54 1/2 Ns IV 03/28/17 22:59 1,000 mls CONT CLARIBEL Administration Lorazepam 0.5 - 1 mg 09/30/16 00:02 09/30/16 02:27 Ativan PO 03/29/17 00:01 0.5 mg HS PRN Administration Anxiety, Able to Take PO Ondansetron HCl 4 mg 09/29/16 22:33 10/03/16 05:33 Zofran IVP 03/28/17 22:32 4 mg Q4 PRN Administration Nausea/Vomiting, Can't Take PO Oxycodone HCl 5 - 10 mg 09/29/16 22:34 10/02/16 19:21 Oxycodone Ir PO 10/09/16 22:33 5 mg Q4 PRN Administration Pain, Severe Able to Take PO Promethazine HCl 12.5 mg 09/29/16 22:33 Phenergan IVP 03/28/17 22:32 Q6 PRN Nausea/Vomiting, Can't Take PO Vitamin B Complex 1 ea 10/01/16 09:00 10/02/16 09:44 Vitamin B Complex PO 03/30/17 08:59 1 ea DAILY CLARIBEL Administration Discontinued Medications Generic Name Dose Route Start Last Admin Trade Name Freq PRN Reason Stop Dose Admin Fentanyl 25 mcg 10/03/16 08:00 Duragesic TD 10/13/16 07:59 Q3D CLARIBEL Fentanyl Confirm 10/02/16 12:59 Sublimaze Administered 10/02/16 13:00 Dose 200 mcg .ROUTE .STK-MED ONE Hydromorphone HCl 1 mg 09/29/16 22:47 09/29/16 23:03 Dilaudid IVP 09/29/16 22:48 1 mg EDNOW ONE Administration Sodium Chloride 1,000 mls @ 0 mls/hr 09/29/16 21:47 09/29/16 22:23 Ns IV 09/29/16 21:48 1,000 mls ONCE ONE Administration Wide Open Lorazepam 2 mg 09/29/16 21:48 09/30/16 00:23 Ativan Injection IM 09/29/16 21:49 Not Given EDNOW ONE Methylprednisolone Sodium Succinate 80 mg 09/29/16 21:47 09/29/16 22:22 Solu-Medrol IVP 09/29/16 21:48 80 mg EDNOW ONE Administration Methylprednisolone Sodium Succinate 30 mg 09/30/16 09:00 10/02/16 09:44 Solu-Medrol IVP 03/29/17 08:59 30 mg BID CLARIBEL Administration Midazolam HCl Confirm 10/02/16 12:59 Versed Administered 10/02/16 13:00 Dose 8 mg .ROUTE .STK-MED ONE Ondansetron HCl 4 mg 09/29/16 20:40 09/29/16 20:45 Zofran IVP 09/29/16 20:41 4 mg EDNOW ONE Administration Ondansetron HCl 4 mg 09/29/16 22:47 09/29/16 23:03 Zofran IVP 09/29/16 22:48 4 mg EDNOW ONE Administration Polyethylene Glycol/Electrolytes 4,000 ml 10/01/16 13:03 10/01/16 16:15 Golytely PO 10/01/16 13:04 Not Given ONCE ONE Polyethylene Glycol/Electrolytes 4,000 ml 10/01/16 16:15 10/01/16 16:16 Golytely PO 10/01/16 16:16 4,000 ml ONCE ONE Administration Physical Exam - Physical Exam General Appearance: alert, no apparent distress Respiratory: chest non-tender, lungs clear, normal breath sounds Abdomen: normal bowel sounds, non-tender, soft Rectal: other (eythema on right aspect of scrotum with exudate and drainage) Skin: normal color, warm/dry Neuro/Psych: alert, normal mood/affect ICD10 Worksheet Patient Problems: Problems Problem Status Onset Ulcerative colitis Acute Abscess Acute Methicillin resistant Staphylococcus aureus infection Acute
[2016-10-03] MEDS: VITAMIN B COMPLEX 1 EA CAP/TAB PO SCH (10:29)
[2016-10-03] MEDS: oxyCODONE IR 5 MG TAB PO PRN (10:29)
--- NOTE | 2016-10-03 14:25 | GDS ---
[f rep st] DISCHARGE SUMMARY DISCHARGE DIAGNOSES: 1. Acute abdominal pain. 2. History of ulcerative colitis. 3. Hypernatremia. 4. Mild metabolic acidosis. 5. History of opioid dependency. 6. Chronic left clavicle fracture. 7. Scrotal skin irritation. HISTORY OF PRESENT ILLNESS: a 51-year-old male, with history of ulcerative colitis and chronic opioid dependency, presenting on 09/27 with abdominal pain. He was offered admission at that time, but decided to leave. CT at that time demonstrated inflammation of the descending and transverse colon. Then abdominal pain worsened significantly in his left lower abdomen and rectum.Had some chills and fatigue. Denies fever. He had loose movements a few days prior. Last scope was several years ago. HOSPITAL COURSE BY PROBLEM: 1. [id number] abdominal pain: suspected from ulcerative colitis. Concern for flare given CT findings on 09/27 showing inflammation. Inflammatory markers were normal.Started IV Solu-Medrol and GI was consulted. Underwent endoscopy that showed left-sided mucosal changes, atrophy and pseudopolyps.No significantly active disease. Discontinued steroids and Bentyl was started for pain. 2. Scrotal maceration: day of discharge, the he c/o scrotal itching and burning. Upon exam, it is looks like the skin is macerated, but no signs of infection or cellulitis. Swab for HSV. He should follow up with his PCP. 3. Chronic left clavicle fracture: cont fentanyl patch. Follow up with Orthopedics. DISPOSITION: Patient is stable for discharge. NEW MEDICATIONS: Bentyl. FOLLOWUP: 1. PCP. 2. GI of the [facility]. /[id number]/MODL MTDD
[2016-10-06 13:45] LABS: SPECIMEN SOURCE SCROTUM
== END 2016-10-03 15:20 | disposition home or self-care (01) | DRG 386 ==
LOC: EDUNIT# → F1N 23:02
PROVIDERS: ADMIT Family Medicine; ATTEND Family Medicine
PROC: 0DBF8ZX Excision of Right Large Intestine, Via Natural or Artificial Opening Endoscopic, Diagnostic (ICD-10-PCS; principal; 2016-10-02 13:15)
DX: K51.90 Ulcerative colitis, unspecified, without complications (principal); E87.0 Hyperosmolality and hypernatremia; E87.2 Acidosis; M84.412A Pathological fracture, left shoulder, initial encounter for fracture; F11.20 Opioid dependence, uncomplicated; L98.9 Disorder of the skin and subcutaneous tissue, unspecified; Z59.0 Homelessness; E86.0 Dehydration
CPT/HCPCS: 87529-90; 96374; J1170; J2250; J2405; J2550; J3010

== ENCOUNTER 2016-12-14 19:56 | Emergency (ER) | payer MEDICAID ==
[2016-12-14 20:16] VITALS: BP 155/107; PULSE 71; RESP 16; TEMP 97.5; O2SAT 98
--- NOTE | 2016-12-14 20:33 | EDPHY ---
H & P Stated Complaint: tongue "sore" x 1 month, no trauma-- HPI/ROS: Chief complaint: Mouth sores History of present illness: 51-year-old male presents to the emergency department for mouth sores. States he has had sores for the last month. He did see his primary care doctor who treated with lysine and he also use canker sore cream iand symptoms appeared to improve. However they have recurred. He has noted them in the mouth and on the tongue. They are slightly painful. He denies other associated signs or symptoms including no swelling, no difficulty opening or closing his mouth, no difficulty swallowing, no difficulty talking, no difficulty breathing. - Personal History Current Tetanus/Diphtheria Vaccine: Unsure Current Tetanus Diphtheria and Acellular Pertussis (TDAP): Unsure Tetanus Vaccine Date: 2012 - Medical/Surgical History Hx Asthma: No Hx Chronic Respiratory Disease: No Hx Diabetes: No Hx Cardiac Disease: No Hx Renal Disease: No Hx Cirrhosis: No Hx Alcoholism: No Hx HIV/AIDS: No Hx Splenectomy or Spleen Trauma: No Other PMH: Ulcerative coliitis, anxiety, chronic pain, clavicle fx, hernia repair - Social History Smoking Status: Never smoked - Physical Exam Exam: General Appearance: Alert and no distress. ENT: Occasional ulcerations noted on the tongue and the anterior oropharynx. Oropharynx is not injected. There is no edema. There is no exudate. There is no asymmetry. The uvula is midline. No elevation of the tongue. There is no hoarseness, no drooling, no trismus, no stridor. Skin: No erythema or edema of the face. No rash. Constitutional: Initial Vital Signs Temperature (C) 36.4 C 12/14/16 20:13 Heart Rate 71 12/14/16 20:13 Respiratory Rate 16 12/14/16 20:13 Blood Pressure 155/107 H 12/14/16 20:13 O2 Sat (%) 98 12/14/16 20:13 O2 Delivery Mode Room Air Allergies/Adverse Reactions: morphine Allergy (Unknown, Verified 09/29/16 20:28) Home Medications: Medication Instructions Recorded Acyclovir 400 mg PO TID 7 Days 12/14/16 Fentanyl 12/14/16 Mesalamine 12/14/16 Zofran 12/14/16 Medical Decision Making ED Course/Re-evaluation: Patient seen under the supervision of my secondary supervising physician Dr. Jayme Valdes. He presents to the emergency department with mouth sores. He has had this for a month. He is nontoxic. Discussed with him it is not clear as to the cause of these although they do appear viral in nature. We have discussed treating with a course of acyclovir. He is referred to ENT for recheck. Return precautions are given. Differential Diagnosis: Included but not limited to herpes infections of multiple etiologies, vitamin deficiencies, pharyngitis Departure - Departure Disposition: Home, Routine, Self-Care Clinical Impression: Mouth sore Condition: Good Instructions: Canker Sores (ED) Referrals: Verna Washburn [Primary Care Provider] - As per Instructions Caty Morales MD [Medical Doctor] - As per Instructions Prescriptions: Acyclovir 400 mg PO TID 7 Days
== END 2016-12-14 20:40 | disposition home or self-care (01) ==
DX: K13.79 Other lesions of oral mucosa (principal)

== ENCOUNTER 2017-08-02 18:23 | Emergency (ER) | payer MEDICAID ==
--- NOTE | 2017-08-02 20:05 | EDPHY ---
H & P Stated Complaint: HX COLITI/HAS ENDOSCOPY SCHEDULED FOR TUESDAY/INCREASING L ABD PAIN Time Seen by Provider: 08/02/17 20:04 HPI/ROS: HPI: This is a 52-year-old male who presents with Chief Complaint: HX COLITIS/HAS ENDOSCOPY SCHEDULED FOR TUESDAY/INCREASING L ABD PAIN Location: Abdominal Quality: Pain Duration: 2 days Signs and Symptoms: no fever, + nausea, + vomiting, no hematemesis, no blood in stool, no abdominal bloating, + diarrhea, no back pain, no urinary symptoms, no testicular/groin pain, no indigestion, no chest pain, no shortness of breath Timing: Acute on chronic Severity: Severe Context: Patient has a history of ulcerative colitis, chronic pain presents with complaints of sudden onset yesterday of generalized abdominal pain that was constant in nature yesterday, nonradiating and now worsening today. He reports that now the pain is in the lower suprapubic area and shoots pain up through his rectal area. Denies any anal fissures. Patient reports that he does have blood on his toilet tissue every once in a while. He had approximately 10 loose stools today. He had nausea with 2 episodes of vomiting prior to arrival. He reports that he is compliant on his mesalamine. He took prednisone 40 mg yesterday and 20 mg today without any relief. He is followed by GI of the [facility]. He had endoscopy approximately 5 months ago that showed left-sided mucosal changes, atrophy and pseudo polyps. Denies scrotal macerations. Tolerating p.o. Without any difficulty. Modifying Factors: See above Comment: ROS: see HPI Constitutional: No fever, no chills, no weight loss Eyes: No blurred vision Respiratory: No shortness of breath, no cough Cardiovascular: No chest pain, no palpitations Gastrointestinal: + nausea, + vomiting, + diarrhea, no hematemesis, no blood in stool Genitourinary: No dysuria, no blood in urine Extremities: No myalgias, no edema Neurologic: No weakness, no numbness Skin: No rashes, no petechiae Hematologic: No bruising, no bleeding MEDICAL/SURGICAL/SOCIAL HISTORY: Medical history: Ulcerative colitis, anxiety, chronic pain, clavicle fx, hernia repair Surgical history: Denies Social history: homeless CONSTITUTIONAL: Well-developed, well-nourished nontoxic-appearing adult male awake and alert, no obvious distress HEENT: Atraumatic and normocephalic, PERRL, EOMI. Tympanic membranes clear. Oropharynx clear, no exudate and moist pink mucosa. Airway patent. No lymphadenopathy. No meningismus. Cardiovascular: Normal S1/S2, regular rate, regular rhythm, without murmur rub or gallop. PULMONARY/CHEST: Symmetrical and nontender. Clear to auscultation bilaterally. Good air movement. No accessory muscle usage. ABDOMEN: Soft, nondistended, moderate generalized reproducible tenderness, no rebound, no guarding, no peritoneal signs, no masses or organomegaly. No CVAT. Bowel sounds heard x4 quadrants EXTREMITIES: 2/2 pulses, strength 5/5, no deformities, no clubbing, no cyanosis or edema. NEUROLOGICAL: no focal neuro deficits. GCS 15. SKIN: Warm and dry, no erythema. no rash. Good capillary refill. Source: Patient Exam Limitations: No limitations - Personal History Current Tetanus/Diphtheria Vaccine: Yes Tetanus Vaccine Date: 2012 - Medical/Surgical History Hx Asthma: No Hx Chronic Respiratory Disease: No Hx Diabetes: No Hx Cardiac Disease: No Hx Renal Disease: No Hx Cirrhosis: No Hx Alcoholism: No Hx HIV/AIDS: No Hx Splenectomy or Spleen Trauma: No Other PMH: Ulcerative coliitis, anxiety, chronic pain, clavicle fx, hernia repair - Social History Smoking Status: Never smoked Constitutional: Initial Vital Signs Temperature (C) 36.8 C 08/02/17 18:28 Heart Rate 112 H 08/02/17 18:28 Respiratory Rate 18 08/02/17 18:28 Blood Pressure 162/94 H 08/02/17 18:28 O2 Sat (%) 95 08/02/17 18:28 O2 Delivery Mode Room Air O2 (L/minute) 2 Allergies/Adverse Reactions: morphine Allergy (Unknown, Verified 08/02/17 18:27) Home Medications: Medication Instructions Recorded Acyclovir 400 mg PO TID 7 Days tablet 12/14/16 Mesalamine 12/14/16 Zofran 12/14/16 predniSONE 40 mg PO DAILY 7 Days tab 08/02/17 predniSONE Intensol 08/02/17 Medical Decision Making - Diagnostics Imaging Results: Imaging Impressions Abdomen CT 08/02/17 20:06 Impression: 1. Constipation, with no acute findings. 2. Nephrolithiasis. 3. Mild bladder distention. 4. Additional findings, as above. Findings discussed with Karlee Uriarte PA-C, on August 02, 2017 at 2117. ED Course/Re-evaluation: Labs, urinalysis, CT abdomen and pelvis scan, IV medications, IV fluids ordered Given 1 L normal saline, IV Dilaudid 1 mg and IV Solu-Medrol 125 mg Vital signs reviewed upon arrival in show mild tachycardia. No fever. 2116: Called by radiologist who advised that CT abdomen and pelvis scan shows signs of constipation but no signs of colitis, obstruction, appendicitis, gallbladder disease. Of note, Bladder is quite full. Labs reviewed and no signs of sepsis/a KI/electrolyte imbalance/elevated LFTs 2129: Reassessed patient who reports that there is complete relief of his abdominal pain. He feels comfortable to be discharged home as he has his endoscopy on Tuesday and close follow-up with GI of the [facility]. Patient reports that he has prednisone already at home. Patient is appropriate to treat as outpatient. Passed p.o. Trial prior to discharge. This patient was seen under the supervision of my secondary supervising physician. I evaluated care for this patient independently. Differential Diagnosis: Abdominal pain including but not limited to appendicitis, cholecystitis, ulcerative colitis flare, chronic opiate use, gastritis and urinary tract infection. - Data Points Laboratory Results: Laboratory Results 08/02/17 19:55 08/02/17 19:55 08/02/17 08/02/17 08/02/17 20:55 19:55 19:55 WBC 10.10 10^3/uL H 10^3/uL (3.80-9.50) RBC 5.06 10^6/uL 10^6/uL (4.40-6.38) Hgb 16.5 g/dL g/dL (13.7-17.5) Hct 47.0 % % (40.0-51.0) MCV 92.9 fL fL (81.5-99.8) MCH 32.6 pg pg (27.9-34.1) MCHC 35.1 g/dL g/dL (32.4-36.7) RDW 13.1 % % (11.5-15.2) Plt Count 268 10^3/uL 10^3/uL (150-400) MPV 9.7 fL fL (8.7-11.7) Neut % (Auto) 91.9 % H % (39.3-74.2) Lymph % (Auto) 5.7 % L % (15.0-45.0) Gordon % (Auto) 1.7 % L % (4.5-13.0) Eos % (Auto) 0.0 % L % (0.6-7.6) Baso % (Auto) 0.2 % L % (0.3-1.7) Nucleat RBC Rel Count 0.0 % % (0.0-0.2) Absolute Neuts (auto) 9.28 10^3/uL H 10^3/uL (1.70-6.50) Absolute Lymphs (auto) 0.58 10^3/uL L 10^3/uL (1.00-3.00) Absolute Monos (auto) 0.17 10^3/uL L 10^3/uL (0.30-0.80) Absolute Eos (auto) 0.00 10^3/uL L 10^3/uL (0.03-0.40) Absolute Basos (auto) 0.02 10^3/uL 10^3/uL (0.02-0.10) Absolute Nucleated RBC 0.00 10^3/uL 10^3/uL (0-0.01) Immature Gran % 0.5 % % (0.0-1.1) Immature Gran # 0.05 10^3/uL 10^3/uL (0.00-0.10) VBG Lactic Acid 0.9 mmol/L mmol/L (0.7-2.1) Sodium 141 mEq/L mEq/L (135-145) Potassium 4.0 mEq/L mEq/L (3.5-5.2) Chloride 99 mEq/L mEq/L (97-110) Carbon Dioxide 28 mEq/l mEq/l (22-31) Anion Gap 14 mEq/L mEq/L (8-16) BUN 16 mg/dL mg/dL (7-23) Creatinine 0.9 mg/dL mg/dL (0.7-1.3) Estimated GFR > 60 Glucose 136 mg/dL H mg/dL (70-100) Calcium 9.7 mg/dL mg/dL (8.5-10.4) Total Bilirubin 1.0 mg/dL mg/dL (0.1-1.4) Conjugated Bilirubin 0.6 mg/dL H mg/dL (0.0-0.5) Unconjugated Bilirubin 0.4 mg/dL mg/dL (0.0-1.1) AST 14 IU/L L IU/L (17-59) ALT 30 IU/L IU/L (21-72) Alkaline Phosphatase 71 IU/L IU/L (38-126) Total Protein 7.7 g/dL g/dL (6.3-8.2) Albumin 4.8 g/dL g/dL (3.5-5.0) Lipase 124 IU/L IU/L (23-300) Medications Given: Discontinued Medications Hydromorphone HCl (Dilaudid) 1 mg IVP EDNOW ONE Stop: 08/02/17 20:43 Last Admin: 08/02/17 21:21 Dose: 1 mg Sodium Chloride (Ns) 1,000 mls @ 0 mls/hr IV EDNOW ONE; Wide Open PRN Reason: Protocol Stop: 08/02/17 20:07 Last Admin: 08/02/17 20:39 Dose: 1,000 mls Methylprednisolone Sodium Succinate (Solu-Medrol) 125 mg IVP EDNOW ONE Stop: 08/02/17 20:43 Last Admin: 08/02/17 21:21 Dose: 125 mg Ondansetron HCl (Zofran) 4 mg IVP EDNOW ONE Stop: 08/02/17 21:21 Last Admin: 08/02/17 21:21 Dose: 4 mg Departure - Departure Disposition: Home, Routine, Self-Care Clinical Impression: History of ulcerative colitis, Chronic abdominal pain Constipation Qualifiers: Constipation type: unspecified constipation type Qualified Code(s): K59.00 - Constipation, unspecified Condition: Good Instructions: Constipation (DC), Ulcerative Colitis (ED) Additional Instructions: Take Prednisone 40 mg x 7 days. Consume a minimum of 8-10 glasses of water or electrolyte fluid replacement drinks that include Gatorade, Powerade, Pedialyte. Eat a bland diet for the next 48 hours and then slowly advance as tolerated. Keep appointment for endoscopy this Tuesday and make follow-up appointment in the next 7-10 days with GI of the [facility]. Return to the Emergency Room if symptoms do not resolve in the next 48-72 hours , you spike a fever > 102 F, or experience intractable abdominal pain/nausea/ vomiting. Referrals: Verna Washburn [Primary Care Provider] - As per Instructions [facility] [Provider Group] - As per Instructions Prescriptions: predniSONE 40 mg PO DAILY 7 Days tab
[2017-08-02] MEDS ORDERED: NS 1,000 ML IV ONE (20:06)
[2017-08-02 20:35] LABS: PLATELET COUNT 268 10^3/uL (150-400)
[2017-08-02] MEDS ORDERED: HYDROmorphONE/DILAUDID 2 MG/ML INJ IVP ONE (20:42)
[2017-08-02] MEDS ORDERED: methylPREDNISolone SOD SUCC 125 MG/2 ML VIAL IVP ONE (20:42)
[2017-08-02] MEDS ORDERED: ONDANSETRON 4 MG/2 ML VIAL ONE (20:48)
[2017-08-02] MEDS ORDERED: IOPAMIDOL (ISOVUE-300) 100 ML BTL ONE (20:51)
[2017-08-02] MEDS ORDERED: ONDANSETRON 4 MG/2 ML VIAL IVP ONE (21:20)
[2017-08-02 22:19] VITALS: BP 143/95
== END 2017-08-02 22:44 | disposition home or self-care (01) ==
DX: K59.00 Constipation, unspecified (principal); E86.9 Volume depletion, unspecified; Z87.19 Personal history of other diseases of the digestive system
CPT/HCPCS: 96374; J1170; J2405; J2930; Q9967

== ENCOUNTER 2017-09-05 12:00 | Day surgery (SDC) | payer MEDICAID ==
[2017-09-05] MEDS ORDERED: LR 1,000 ML IV ONE (12:14)
--- NOTE | 2017-09-05 12:45 | PDANEPAE ---
ANE History of Present Illness ulcerative colitis, here for EGD ANE Past Medical History - Cardiovascular History Hx Hypertension: No Hx Arrhythmias: No Hx Chest Pain: No Hx Coronary Artery / Peripheral Vascular Disease: No Hx CHF / Valvular Disease: No Hx Palpitations: No - Pulmonary History Hx COPD: No Hx Asthma/Reactive Airway Disease: No Hx Recent Upper Respiratory Infection: No Hx Oxygen in Use at Home: No Hx Sleep Apnea: No Sleep Apnea Screening Result - Last Documented: Negative - Neurologic History Hx Cerebrovascular Accident: No Hx Seizures: No Hx Dementia: No - Endocrine History Hx Diabetes: No - Renal History Hx Renal Disorders: No - Liver History Hx Hepatic Disorders: No - Neurological & Psychiatric Hx Hx Neurological and Psychiatric Disorders: Yes Neurological / Psychiatric History Comment: anxiety - Cancer History Hx Cancer: No - Congenital Disorder History Hx Congenital Disorders: No - GI History Hx Gastrointestinal Disorders: Yes Gastrointestinal History Comment: ulcerative colitis. colonoscopy with chetham 09/2016. hx of hernia repair - Chronic Pain History Chronic Pain: Yes (hx of chronic pain) - Surgical History Prior Surgeries: colonoscopy with chetham while in hospital 09/2016. hernia repair ANE Review of Systems Review of Systems: - Exercise capacity Exercise capacity: >=4 METS ANE Patient History - Allergies Allergies/Adverse Reactions: morphine Allergy (Unknown, Verified 08/02/17 18:27) - Home Medications Home Medications: Mesalamine 12/14/16 [Last Taken 09/04/17] Zofran 12/14/16 [Last Taken 08/31/17] predniSONE Intensol 08/02/17 [Last Taken 09/04/17] - NPO status NPO Since - Liquids (Date): 09/04/17 NPO Since - Liquids (Time): 22:40 NPO Since - Solids (Date): 09/04/17 NPO Since - Solids (Time): 14:00 - Anes Hx Anes Hx: no prior problems - Smoking Hx Smoking Status: Never smoked - Alcohol Use Alcohol Use: Occasionally - Family Anes Hx Family Anes Hx: none ANE Labs/Vital Signs - Vital Signs Blood Pressure: 164/96 Heart Rate: 71 Respiratory Rate: 15 O2 Sat (%): 97 Height: 175.26 cm Weight: 67.132 kg ANE Physical Exam - Airway Neck exam: FROM Mallampati Score: Class 2 Mouth exam: normal dental/mouth exam Mouth image: 1 - chipped 2 - missing 3 - missing - Pulmonary Pulmonary: no respiratory distress, clear to auscultation - Cardiovascular Cardiovascular: regular rate and rhythym, no murmur, rub, or gallop - ASA Status ASA Status: II
[2017-09-05] MEDS ORDERED: PROPOFOL/EMULSION 500 MG/50 ML BOTTLE IV ONE (13:27)
[2017-09-05] MEDS ORDERED: NALOXONE HCL 0.4 MG/ML INJ IVP PRN (13:47)
[2017-09-05] MEDS ORDERED: INDOMETHACIN 50 MG SUPP PR PRN (13:47)
--- NOTE | 2017-09-05 13:47 | PDGENHP ---
History & Physical Chief Complaint: heartburn History of Present Illness: 52 year old male presents for evaluaition of epigastric abdominal pain and heartburn. Pertinent Past, Social, Family History: PMHx: UC Relevant Physical Exam: HEENT: anicteric. CV: RRR +s1s2. Lungs: CTAB. Abd: soft, nt, + bs Cardiorespiratory Assessment: ASA 2
--- NOTE | 2017-09-05 13:48 | POSTANESTH ---
Post Anesthetic Evaluation Cardiovascular Status: Normal, Stable, Similar to Pre-Op Cond Respiratory Status: Normal, Stable, Similar to Pre-op Cond. Level of Consciousness/Mental Status: Can Participate in Eval, Alert and Oriented Pain Control: Adequate, Prn Tx Ordered Nausea/Vomiting Control: Adequate, Prn Tx Ordered Complications Possibly Related to Anesthesia: None Noted
--- NOTE | 2017-09-05 13:55 | GIREPORT ---
[facility] - Endoscopy Department Patient Name: Kory Mcnamara Procedure Date: 09/05/2017 1:20 PM Patient Type: Outpatient Attending MD/ ER Physician: Vish Evans MD Procedure: Upper GI endoscopy Indications: Epigastric abdominal pain, Heartburn Patient Profile: 52 year old male presents for evaluation of epigastric abdominal pain/heartburn. Providers: Vish Evans MD Medicines: Monitored Anesthesia Care Complications: No immediate complications. Estimated blood loss: Minimal. Description of Procedure: After obtaining informed consent, the endoscope was passed under direct vision. Throughout the procedure, the patient's blood pressure, pulse, and oxygen saturations were monitored continuously. The Endoscope was intro duced through the mouth, and advanced to the second part of duodenum. The [facility] er GI endoscopy was accomplished without difficulty. The patient tolerated th e procedure well. Findings: White nummular lesions were noted in the upper third of the esophagus. Biopsies were taken with a cold forceps for histology. A hiatal hernia was present. Patchy mildly erythematous mucosa was found in the gastric body and in the gastric antrum. Biopsies were taken with a cold forceps for histology. The examined duodenum was normal. Estimated Blood Loss: Estimated blood loss was minimal. Post Op Diagnosis: - White nummular lesions in esophageal mucosa. Biopsied. - Hiatal hernia. - Erythematous mucosa in the gastric body and antrum. Biopsied. - Normal examined duodenum. - Etiology? Suspect GERD? Trial of PPI? Recommendation: - Discharge patient to home (with escort). - Resume regular diet. - Follow an antireflux regimen. - Follow up in office as directed - Consider PPI therapy. - Thank you for allowing me to participate in the care of your patient. Attending Participation: I personally performed the entire procedure. Vish Evans MD Vish Evans MD 09/05/2017 1:55:02 PM This report has been signed electronicallyVish Evans MD Number of Addenda: 0 Note Initiated On: 09/05/2017 1:20 PM [email or web address]
[2017-09-05] MEDS ORDERED: NS 500 ML IV SCH (14:00)
[2017-09-05 15:00] VITALS: BP 136/92
== END 2017-09-05 15:02 | disposition home or self-care (01) ==
LOC: FSGY 12:00
PROVIDERS: ATTEND Internal Medicine Gastroenterology
DX: R10.13 Epigastric pain (principal); R12 Heartburn
CPT/HCPCS: J2704

== ENCOUNTER 2017-09-14 14:26 | Emergency (ER) | payer MEDICAID ==
--- NOTE | 2017-09-14 14:39 | EDPHY ---
H & P Stated Complaint: ABD pain, bloodyd pain x 48hrs, colitis flare up Source: Patient Exam Limitations: No limitations - Personal History Current Tetanus/Diphtheria Vaccine: Yes Current Tetanus Diphtheria and Acellular Pertussis (TDAP): Yes Tetanus Vaccine Date: 2012 - Medical/Surgical History Hx Asthma: No Hx Chronic Respiratory Disease: No Hx Diabetes: No Hx Cardiac Disease: No Hx Renal Disease: No Hx Cirrhosis: No Hx Alcoholism: No Hx HIV/AIDS: No Hx Splenectomy or Spleen Trauma: No Other PMH: Ulcerative coliitis, anxiety, chronic pain, clavicle fx, hernia repair - Social History Smoking Status: Never smoked Time Seen by Provider: 09/14/17 14:38 HPI/ROS: HPI: This is a 52-year-old male who presents with Chief Complaint: ABD pain, bloody diarrhea, pain x 48hrs, colitis flare up Location: Lower abdomen Quality: Pain and cramping Duration: 48 hr Signs and Symptoms: no fever, + nausea, no vomiting, no hematemesis, + blood in stool, no abdominal bloating, + diarrhea, no back pain, no urinary symptoms, no testicular/groin pain, no indigestion, no chest pain, no shortness of breath Timing: Acute on chronic Severity: 12/02 Context: Patient has a history of ulcerative colitis, chronic pain presents with sudden onset 48 hr ago of lower abdominal sharp cramping pain that is nonradiating in nature accompanied by diarrhea approximately 5-6 times per day. He has noted blood in his stool. He complains of some nausea but no vomiting. Denies fever. Patient reports that he had an EGD last week that per him he was advised "looked normal."He is waiting on his H pylori test results. Patient was tapered off of his prednisone approximately 1 week prior to the procedure. He believes that this may have been the trigger for his current flare. He is followed by GI of [facility]. Patient reports that his last CT scan was in July. He has not been admitted to the hospital in several months for colitis flare. Patient is scheduled to leave for a trip on Tuesday and he is reluctant to come into the hospital if at all possible. He is taking Uceris and Mesalamine. Modifying Factors: Regular medications Comment: ROS: see HPI Constitutional: No fever, no chills, no weight loss Eyes: No blurred vision Respiratory: No shortness of breath, no cough Cardiovascular: No chest pain, no palpitations Gastrointestinal: + nausea, no vomiting, no diarrhea, no hematemesis, + blood in stool Genitourinary: No dysuria, no blood in urine Extremities: No myalgias, no edema Neurologic: No weakness, no numbness Skin: No rashes, no petechiae Hematologic: No bruising, no bleeding MEDICAL/SURGICAL/SOCIAL HISTORY: Medical history: Ulcerative colitis, anxiety, chronic pain, clavicle fx, hernia repair Surgical history: Denies Social history: Nonsmoker. Homeless. Family history noncontributory. CONSTITUTIONAL: awake and alert, no obvious distress HEENT: Atraumatic and normocephalic, PERRL, EOMI. Nares patent; no rhinorrhea; no nasal mucosal edema. Tympanic membranes clear. Oropharynx clear, no exudate and moist pink mucosa. Airway patent. No lymphadenopathy. No meningismus. Cardiovascular: Normal S1/S2, regular rate, regular rhythm, without murmur rub or gallop. PULMONARY/CHEST: Symmetrical and nontender. Clear to auscultation bilaterally. Good air movement. No accessory muscle usage. ABDOMEN: Soft, nondistended, moderate lower abdominal tenderness, no rebound, no guarding, no peritoneal signs, no masses or organomegaly. No CVAT. Hyperactive bowel sounds heard in the lower quadrant. EXTREMITIES: 2/2 pulses, strength 5/5, no deformities, no clubbing, no cyanosis or edema. NEUROLOGICAL: no focal neuro deficits. GCS 15. SKIN: Warm and dry, no erythema. no rash. Good capillary refill. (Chapito,Terra) Constitutional: Initial Vital Signs Temperature (C) 36.8 C 09/14/17 14:26 Heart Rate 67 09/14/17 14:26 Respiratory Rate 16 09/14/17 14:26 Blood Pressure 140/93 H 09/14/17 14:26 O2 Sat (%) 97 09/14/17 14:26 O2 Delivery Mode Room Air O2 (L/minute) 2 Allergies/Adverse Reactions: morphine Allergy (Unknown, Verified 08/02/17 18:27) Home Medications: Medication Instructions Recorded Acyclovir 400 mg PO TID 7 Days tablet 12/14/16 Mesalamine 12/14/16 Zofran 12/14/16 Uceris 09/14/17 predniSONE 60 mg PO DAILY #15 tab 09/14/17 Medical Decision Making - Diagnostics Imaging Results: Imaging Impressions Abdomen CT 09/14/17 14:41 Impression: 1. Mild nonspecific thickening of the rectosigmoid. Unable to further evaluate without enteric/rectal contrast. Lower endoscopy could also be considered. 2. Moderate retained stool within the proximal colon. Findings were communicated by telephone with Dr. Askew at 09/14/2017 17:03 ED Course/Re-evaluation: Labs, CT abdomen and pelvis scan, IV fluids, IV medications, stool guaiac ordered 1456: Given 1 L normal saline, IV Dilaudid, IV Solu-Medrol 125 mg Vital signs reviewed upon arrival and stable. 1539: Reassessed patient. He reports lower abdominal and rectal pain is" easing off." Offered more pain medication and he reports that he wants to wait and see. 1611: Notified by nurse that patient is now requesting more pain medication. IV Dilaudid 1 mg ordered. 1615: Reviewed labs. No signs of leukocytosis/anemia/platelet dysfunction/MEENA/ elevated LFTs/electrolyte imbalance/pancreatitis. 1700: End of Shift. Signed over to Dr. Askew pending CT scan results and final disposition. This patient was seen under the supervision of my secondary supervising physician. I evaluated care for this patient independently. Discussed this patient with Dr. Askew who see the patient. (Karlee Uriarte) Differential Diagnosis: Abdominal pain including but not limited to appendicitis, colitis flare, cholecystitis, gastritis and urinary tract infection. (Karlee Uriarte) Other Provider: We discussed the patient's CT results and lab work which are very reassuring. I will start him back on prednisone until he follows up with his gastrologist her primary for tapering. He had a colonoscopy 2 months ago. He takes oxycodone at home. We discussed other options for pain control. I will give him a short take-home pack of Ativan. (Josh Askew) - Data Points Laboratory Results: Laboratory Results 09/14/17 15:03 09/14/17 15:03 09/14/17 09/14/17 15:03 15:03 WBC 8.07 10^3/uL 10^3/uL (3.80-9.50) RBC 4.45 10^6/uL 10^6/uL (4.40-6.38) Hgb 14.5 g/dL g/dL (13.7-17.5) Hct 41.7 % % (40.0-51.0) MCV 93.7 fL fL (81.5-99.8) MCH 32.6 pg pg (27.9-34.1) MCHC 34.8 g/dL g/dL (32.4-36.7) RDW 13.2 % % (11.5-15.2) Plt Count 262 10^3/uL 10^3/uL (150-400) MPV 9.7 fL fL (8.7-11.7) Neut % (Auto) 80.0 % H % (39.3-74.2) Lymph % (Auto) 12.8 % L % (15.0-45.0) [place] % (Auto) 5.8 % % (4.5-13.0) Eos % (Auto) 0.1 % L % (0.6-7.6) Baso % (Auto) 0.9 % % (0.3-1.7) Nucleat RBC Rel Count 0.0 % % (0.0-0.2) Absolute Neuts (auto) 6.46 10^3/uL 10^3/uL (1.70-6.50) Absolute Lymphs (auto) 1.03 10^3/uL 10^3/uL (1.00-3.00) Absolute Monos (auto) 0.47 10^3/uL 10^3/uL (0.30-0.80) Absolute Eos (auto) 0.01 10^3/uL L 10^3/uL (0.03-0.40) Absolute Basos (auto) 0.07 10^3/uL 10^3/uL (0.02-0.10) Absolute Nucleated RBC 0.00 10^3/uL 10^3/uL (0-0.01) Immature Gran % 0.4 % % (0.0-1.1) Immature Gran # 0.03 10^3/uL 10^3/uL (0.00-0.10) Sodium 143 mEq/L mEq/L (135-145) Potassium 4.1 mEq/L mEq/L (3.3-5.0) Chloride 105 mEq/L mEq/L (97-110) Carbon Dioxide 24 mEq/l mEq/l (22-31) Anion Gap 14 mEq/L mEq/L (8-16) BUN 11 mg/dL mg/dL (7-23) Creatinine 0.8 mg/dL mg/dL (0.7-1.3) Estimated GFR > 60 Glucose 95 mg/dL mg/dL (70-100) Calcium 9.1 mg/dL mg/dL (8.5-10.4) Total Bilirubin 0.8 mg/dL mg/dL (0.1-1.4) Conjugated Bilirubin 0.4 mg/dL mg/dL (0.0-0.5) Unconjugated Bilirubin 0.4 mg/dL mg/dL (0.0-1.1) AST 12 IU/L L IU/L (17-59) ALT 24 IU/L IU/L (21-72) Alkaline Phosphatase 54 IU/L IU/L (38-126) Total Protein 6.6 g/dL g/dL (6.3-8.2) Albumin 3.9 g/dL g/dL (3.5-5.0) Lipase 91 IU/L IU/L (23-300) Medications Given: Discontinued Medications Hydromorphone HCl (Dilaudid) 1 mg IVP EDNOW ONE Stop: 09/14/17 14:41 Last Admin: 09/14/17 15:10 Dose: 1 mg Hydromorphone HCl (Dilaudid) 1 mg IVP EDNOW ONE Stop: 09/14/17 16:11 Last Admin: 09/14/17 16:25 Dose: 1 mg Sodium Chloride (Ns) 1,000 mls @ 0 mls/hr IV EDNOW ONE; Wide Open PRN Reason: Protocol Stop: 09/14/17 14:41 Last Admin: 09/14/17 15:06 Dose: 1,000 mls Methylprednisolone Sodium Succinate (Solu-Medrol) 125 mg IVP EDNOW ONE Stop: 09/14/17 14:42 Last Admin: 09/14/17 15:09 Dose: 125 mg Ondansetron HCl (Zofran) 4 mg IVP EDNOW ONE Stop: 09/14/17 14:41 Last Admin: 09/14/17 15:09 Dose: 4 mg Departure - Departure Disposition: Home, Routine, Self-Care Clinical Impression: Ulcerative colitis with rectal bleeding Qualifiers: Ulcerative colitis location: unspecified ulcerative colitis location Qualified Code(s): K51.911 - Ulcerative colitis, unspecified with rectal bleeding Condition: Fair Instructions: Lorazepam (By mouth), Ulcerative Colitis (ED) Referrals: Verna Washburn [Primary Care Provider] - 2-3 days, call for appt. Prescriptions: predniSONE 60 mg PO DAILY #15 tab
[2017-09-14] MEDS ORDERED: HYDROmorphONE/DILAUDID 2 MG/ML INJ IVP ONE ×2 (14:40→16:10)
[2017-09-14] MEDS ORDERED: NS 1,000 ML IV ONE (14:40)
[2017-09-14] MEDS ORDERED: ONDANSETRON 4 MG/2 ML VIAL IVP ONE (14:40)
[2017-09-14] MEDS ORDERED: methylPREDNISolone SOD SUCC 125 MG/2 ML VIAL IVP ONE (14:41)
[2017-09-14] MEDS ORDERED: HYDROmorphONE/DILAUDID 1 MG/ML INJ ONE ×3 (14:55→16:26)
[2017-09-14 15:33] LABS: PLATELET COUNT 262 10^3/uL (150-400)
[2017-09-14] MEDS ORDERED: IOPAMIDOL (ISOVUE-300) 100 ML BTL ONE (16:22)
[2017-09-14] MEDS ORDERED: LORAZEPAM 1 MG PREPACK#4 BTL TAKEHOME ONE (17:21)
[2017-09-14 17:26] VITALS: BP 133/84
== END 2017-09-14 17:42 | disposition home or self-care (01) ==
DX: K51.911 Ulcerative colitis, unspecified with rectal bleeding (principal); E86.9 Volume depletion, unspecified
CPT/HCPCS: 96374; J1170; J2405; J2930; Q9967

== ENCOUNTER 2017-10-05 21:30 | Inpatient (IN) | payer MEDICAID ==
--- NOTE | 2017-10-05 21:43 | EDPHY ---
H & P Stated Complaint: COLITIS FLARE UP/HX OF COLITIS SINCE 2000 Time Seen by Provider: 10/05/17 21:43 HPI/ROS: HPI CHIEF COMPLAINT: Nausea, vomiting, diarrhea, abdominal pain HISTORY OF PRESENT ILLNESS: 52-year-old male, history pulse of colitis, currently on prednisone, he presents emergency room with nausea vomiting and diarrhea. He reports his diarrhea as a mixture of dark stool as well as bright red blood. He distally reports left-sided abdominal pain. He denies any chest pain shortness of breath, denies fever. States been compliant this steroids. States he is having hard time keeping down fluids and feels dehydrated. Past Medical History: Ulcerative colitis Past Surgical History: No recent surgery Social History: Denies drugs alcohol tobacco. Family History: Noncontributory ROS REVIEW OF SYSTEMS: A comprehensive 10 point review of systems is otherwise negative aside from elements mentioned in the history of present illness. Exam Constitutional nontoxic. triage nursing summary reviewed, vital signs reviewed , awake/alert. Eyes normal conjunctivae and sclera, EOMI, PERRLA. HENT normal inspection, atraumatic, moist mucus membranes, no epistaxis, neck supple/ no meningismus, no raccoon eyes. Respiratory clear to auscultation bilaterally, normal breath sounds, no respiratory distress, no wheezing. Cardiovascular rate normal, regular rhythm, no murmur, no edema, distal pulses normal. Gastrointestinal soft, non-tender, no rebound, no guarding, normal bowel sounds, no distension, no pulsatile mass. Genitourinary no CVA tenderness. Musculoskeletal no midline vertebral tenderness, full range of motion, no calf swelling, no tenderness of extremities, no meningismus, good pulses, neurovascularly intact. Skin pink, warm, & dry, no rash, skin atraumatic. Neurologic awake, alert and oriented x 3, AAOx3, moves all 4 extremities equally, motor intact, sensory intact, CN II-XII intact, normal cerebellar, normal vision, normal speech. Psychiatric normal mood/affect. Heme/Lymph/Immune no lymphadenopathy. Differential diagnosis includes but is not limited to and in no particular order : Bowel obstruction, appendicitis, gallbladder disease, diverticulitis, colitis , enteritis, perforated viscus, gastritis, GERD, esophagitis, urinary tract infection, pyelonephritis, kidney stones Medical Decision Making: Plan for this patient IV establishment with IV fluid bolus, type and screen, check blood work., IV fluid bolus, fentanyl for pain control, and re-evaluate Re-evaluation: CT scan abdomen pelvis with IV contrast called to me by Dr. Foley, does not show any acute inflammatory process seen on CT scan. 2327: I did review this patient's blood work his H&H are much lower than last month. Additionally he has a white count with left shift. Plan will be for admission to the hospital for bloody diarrhea. 2342: I consult GI doctor Netta. Plan on seeing the patient. Did not have any further recommendations at this time. Source: Patient - Personal History Tetanus Vaccine Date: 2012 - Medical/Surgical History Hx Asthma: No Hx Chronic Respiratory Disease: No Hx Diabetes: No Hx Cardiac Disease: No Hx Renal Disease: No Hx Cirrhosis: No Hx Alcoholism: No Hx HIV/AIDS: No Hx Splenectomy or Spleen Trauma: No Other PMH: Ulcerative coliitis, anxiety, chronic pain, clavicle fx, hernia repair - Social History Smoking Status: Never smoked Constitutional: Initial Vital Signs Temperature (C) 36.8 C 10/05/17 21:34 Heart Rate 92 10/05/17 21:34 Respiratory Rate 16 10/05/17 21:34 Blood Pressure 154/92 H 10/05/17 21:34 O2 Sat (%) 95 10/05/17 21:34 O2 Delivery Mode Room Air Allergies/Adverse Reactions: morphine Allergy (Unknown, Verified 08/02/17 18:27) Home Medications: Medication Instructions Recorded Mesalamine [Delzicol] 400 mg PO BID #0 12/14/16 Ondansetron Odt [Zofran Odt 4 mg 4 mg PO Q4 PRN #0 12/14/16 (*)] Cyanocobalamin [Vitamin B12 (*)] 1,000 mcg PO DAILY 10/06/17 Temazepam [Restoril 15 MG (*)] 15 mg PO HSPRN PRN 10/06/17 oxyCODONE IR [Oxycodone Ir (*)] 5 - 10 mg PO DAILY PRN 10/06/17 predniSONE 60 mg PO DAILY 10/06/17 Medical Decision Making - Data Points Laboratory Results: Laboratory Results 10/06/17 06:05 10/06/17 06:05 Medications Given: Hydromorphone HCl (Dilaudid) 0.5 - 1 mg IVP Q2 PRN PRN Reason: Pain, Severe Unable to Take PO Stop: 10/16/17 01:06 Last Admin: 10/08/17 00:32 Dose: 1 mg Loperamide HCl ( Imodium) 2 mg PO QID PRN PRN Reason: Diarrhea/Loose Stools Stop: 04/05/18 13:07 Last Admin: 10/07/17 17:47 Dose: 2 mg Mesalamine (Canasa Suppository) 1,000 mg AR HS CLARIBEL Stop: 04/05/18 20:59 Last Admin: 10/07/17 20:38 Dose: 1,000 mg Ondansetron HCl (Zofran) 4 mg IVP Q4HRS PRN PRN Reason: Nausea/Vomiting, Can't Take PO Stop: 04/03/18 23:53 Last Admin: 10/08/17 00:31 Dose: 4 mg Oxycodone HCl (Oxycodone Ir) 10 mg PO Q4HRS PRN PRN Reason: Pain, Severe Able to Take PO Stop: 10/16/17 11:52 Last Admin: 10/07/17 10:06 Dose: 10 mg Discontinued Medications Azathioprine (Imuran) 100 mg PO DAILY CLARIBEL Stop: 04/04/18 13:44 Last Admin: 10/07/17 10:07 Dose: 100 mg Fentanyl (Sublimaze) 50 mcg IVP EDNOW ONE Stop: 10/05/17 21:56 Last Admin: 10/05/17 22:22 Dose: 50 mcg Hydromorphone HCl (Dilaudid) 0.5 - 1 mg IVP Q3HRS PRN PRN Reason: Pain, Severe Unable to Take PO Stop: 10/16/17 01:06 Last Admin: 10/06/17 11:02 Dose: 1 mg Sodium Chloride (Ns) 1,000 mls @ 0 mls/hr IV EDNOW ONE; Wide Open PRN Reason: Protocol Stop: 10/05/17 21:49 Last Admin: 10/05/17 22:22 Dose: 1,000 mls Sodium Chloride (Ns) 1,000 mls @ 100 mls/hr IV CONT CLARIBEL Stop: 04/03/18 23:44 Last Admin: 10/06/17 01:34 Dose: 1,000 mls Potassium Chloride 20 meq/ (Sodium Chloride) 1,000 mls @ 100 mls/hr IV CONT CLARIBEL Stop: 04/04/18 13:29 Last Admin: 10/07/17 10:09 Dose: 1,000 mls Lactated Ringer's (Lr) 1,000 mls @ 0 mls/hr IV ONCE ONE PRN Reason: Per Protocol Stop: 10/07/17 11:48 Last Admin: 10/07/17 12:00 Dose: 1,000 mls Methylprednisolone Sodium Succinate (Solu-Medrol) 30 mg IVP Q12H CLARIBEL Stop: 04/04/18 22:59 Last Admin: 10/07/17 11:16 Dose: 30 mg Methylprednisolone Sodium Succinate (Solu-Medrol) 125 mg IVP ONCE ONE Stop: 10/06/17 11:09 Last Admin: 10/06/17 12:29 Dose: 125 mg Ondansetron HCl (Zofran) 4 mg IVP EDNOW ONE Stop: 10/05/17 21:56 Last Admin: 10/05/17 22:21 Dose: 4 mg Polyethylene Glycol/Electrolytes (Gavilyte - G) 3,000 ml PO ONCE ONE Stop: 10/06/17 13:31 Last Admin: 10/06/17 14:19 Dose: 3,000 ml Potassium Chloride (Klor-Con) 40 meq PO ONCE ONE Stop: 10/06/17 02:09 Last Admin: 10/06/17 02:09 Dose: 40 meq Potassium Chloride (Klor-Con) 10 meq PO ONCE ONE PRN Reason: Protocol Stop: 10/06/17 09:45 Last Admin: 10/06/17 11:22 Dose: Not Given Potassium Chloride (Klor-Con) 10 - 40 meq PO ONCE ONE PRN Reason: Protocol Stop: 10/06/17 22:17 Last Admin: 10/06/17 23:37 Dose: 10 meq Potassium Chloride (Klor-Con) 10 - 40 meq PO ONCE ONE PRN Reason: Protocol Stop: 10/07/17 09:16 Last Admin: 10/07/17 10:06 Dose: 20 meq Potassium Chloride (Klor-Con) 10 meq PO ONCE ONE PRN Reason: Protocol Stop: 10/07/17 19:43 Last Admin: 10/07/17 20:38 Dose: 10 meq Departure - Departure Disposition: [facility] Clinical Impression: Ulcerative colitis Qualifiers: Ulcerative colitis location: other ulcerative colitis Digestive disease complication type: unspecified complication Qualified Code(s): K51.819 - Other ulcerative colitis with unspecified complications Gastrointestinal bleed Qualifiers: GI bleed type/associated pathology: unspecified gastrointestinal hemorrhage type Qualified Code(s): K92.2 - Gastrointestinal hemorrhage, unspecified Condition: Fair
[2017-10-05] MEDS ORDERED: NS 1,000 ML IV ONE (21:48)
[2017-10-05] MEDS ORDERED: fentaNYL 100 MCG/2 ML INJ IVP ONE (21:55)
[2017-10-05] MEDS ORDERED: ONDANSETRON 4 MG/2 ML VIAL IVP ONE (21:55)
[2017-10-05 22:13] LABS: PLATELET COUNT 281 10^3/uL (150-400)
[2017-10-05] MEDS ORDERED: IOPAMIDOL (ISOVUE 370) 100 ML BTL IV ONE (22:33)
[2017-10-05] MEDS ORDERED: NS 1,000 ML IV SCH (23:45)
[2017-10-05] MEDS ORDERED: ACETAMINOPHEN 325 MG TAB PO PRN (23:54)
[2017-10-06] MEDS ORDERED: PROTOCOL MAGNESIUM 1 DOSE IV PRN (01:22)
[2017-10-06] MEDS ORDERED: PROTOCOL POTASSIUM 1 DOSE MISC PRN (01:22)
[2017-10-06] MEDS: HYDROmorphONE/DILAUDID 1 MG/ML INJ IVP PRN ×6 (02:00→19:51)
[2017-10-06] MEDS ORDERED: POTASSIUM CL 20 MEQ TAB ONE (02:06)
[2017-10-06] MEDS ORDERED: POTASSIUM CL 20 MEQ TAB PO ONE (02:08)
--- NOTE | 2017-10-06 02:41 | GHP ---
[f rep st] HISTORY AND PHYSICAL DATE OF ADMISSION: 10/05/2017 SOURCE: Patient provides history, appears reliable. EMR was reviewed and case discussed with ED provider. CHIEF COMPLAINT: Bloody diarrhea, nausea, abdominal pain. HISTORY OF PRESENT ILLNESS: This is a pleasant 52-year-old gentleman with past medical history significant for ulcerative colitis, chronic abdominal pain who presents to the emergency department today with complaints of several days of worsening left lower quadrant abdominal pain, distention, and bloody diarrhea. Patient states that he underwent endoscopy 09/05/17. He continued to have worsening abdominal pain, and he was seen in the emergency department on , with worsening abdominal pain. Patient reports that since that time, he has continued to have bloody diarrhea, tenesmus, nausea, some subjective fevers , chills, and sweats. Patient also notes that he has had significantly declined appetite and has not really had anything to eat or drink in the last several days. Patient reports grossly bloody and occasionally tarry stools. He has noted some increase in dizziness, nausea without any vomiting. He is also complaining of radiating pain to his lower back. Patient has been taking 50 mg of prednisone daily and followed by GI of the [facility]. Patient also recently had complained of increasing oral ulcers and was evaluated by ENT, Dr. Carbone. REVIEW OF SYSTEMS: GENERAL: Subjective fevers, chills. Decreased appetite as noted per HPI. SKIN: No acute rashes or sores. ENT: Patient reporting oral ulcers and some increased hoarseness since his last EGD. EYES: No acute changes in vision or ocular pain. CV: No chest pain, palpitations. RESPIRATORY: No shortness of breath or cough. GI: Positive for nausea and vomiting. See HPI for additional details. : No dysuria or hematuria. MUSCULOSKELETAL: Patient complaining of lower extremity bilateral weakness and stiffness and muscle cramping. NEURO: No headache, numbness, tingling, or focal deficits. PSYCH: Patient reports some increased anxiety with current stressors related to his medical issues as well as at home. He denies any SI or HI. Remainder ROS negative except as noted above. ALLERGIES: To morphine. HOME MEDICATIONS: Prednisone, omeprazole, fluconazole. PAST MEDICAL HISTORY: Significant for GERD, hiatal hernia, candidal esophagitis , ulcerative colitis, history of GI bleeding, MRSA. PAST SURGICAL HISTORY: Significant for colonoscopy and EGDs, multiple of both. FAMILY HISTORY: Negative for IBD. Negative for hypertension, diabetes. SOCIAL HISTORY: Patient lives with his fiancee. He does not smoke, drink, or do drugs. CODE STATUS: Full. PHYSICAL EXAMINATION: VITAL SIGNS: Upon arrival to the emergency department, blood pressure 140/93, heart rate 67, respiratory rate 16, O2 sat 97% on room air with temperature 36.8. CURRENT VITALS AVAILABLE: Blood pressure 148/93, heart rate 86, respiratory rate 16, O2 sat 91% on room air, and afebrile. GENERAL: No acute distress. Patient does appear uncomfortable, is lying quite still in the gurney. ABDOMEN: Distended. He does appear a little bit flushed but nontoxic. HEAD: Normocephalic, atraumatic. EYES: Extraocular muscles are grossly intact. Pupils equal, round, slightly decreased reactivity to light bilaterally but symmetric. No scleral icterus or conjunctival injection. ENT: Mucous membranes appear slightly dry. No oropharyngeal erythema or exudates. Patient does have some white lacy-appearing ulcers on his bilateral buccal mucosa and a few on his tongue. Dentition is in fair condition. NECK: Supple. Trachea midline. CV: Regular rate and rhythm. No murmurs, rubs, or gallops appreciated. RESPIRATORY: Unlabored breathing. Lungs are clear to auscultation bilaterally. No wheezes, rales, or rhonchi. ABDOMEN: Distended, soft, tender to palpation greatest in the left mid and lower abdomen. No rebound or guarding appreciated. Positive bowel sounds. : No suprapubic tenderness to palpation. No Almanza catheter in place. MUSCULOSKELETAL: Generalized decrease in strength, 4/5 in upper and lower extremities. Patient does move all extremities while lying in bed, however. NEURO: Cranial nerves 2 -12 intact and symmetric bilaterally. Patient moves all extremities as noted above. PSYCH: Patient does appear just minimally anxious, but he is very pleasant and cooperative. Thought process, content, and questions are all appropriate. Patient is awake, alert, and oriented x3. LABORATORY STUDIES: 1. WBC is 13.94, H and H are 9.1 and 25.9, MCV of 95.9, platelet count is 281, no bands reported, absolute neutrophils 11.07, no bandemia. 2. Lactic acid 1.2. 3. Sodium is 136, potassium 3.1, chloride is 99, CO2 is 27, anion gap of 10, BUN 26, creatinine is 1.0, GFR greater than 60, glucose 100, calcium is 8.2, total bili 0.5, ALT is 30, AST is 13, alk phos is 50, total bilirubin is 5.3, albumin is 3.2, lipase is 292. 4. CT abdomen, pelvis with contrast showing a hyperenhancing focus within the inferior splenic parenchyma. Subcentimeter cystic areas in the left renal cortex, stable. No bowel obstruction, ascites, significant retroperitoneal lymphadenopathy, enlargement of the prostate with central dystrophic calcifications noted. No fluid, adenopathy. Otherwise negative. ASSESSMENT AND PLAN: Pleasant 52-year-old gentleman with history of ulcerative colitis presents with complaints of rectal bleeding. 1. Gastrointestinal bleed with associated acute anemia, likely related to patient's ulcerative colitis. Gastrointestinal has been consulted from the emergency department. Will evaluate the patient in the morning. Do not recommend any additional steroids at this time. 2. Acute blood-loss anemia. Type and screen have been ordered. The patient is unsure if he would want any transfusion at this point, but amenable to continue with serial H and H for monitoring and will reconsider if needed. Blood pressures at this time are stable. 3. Abdominal pain. As-needed Dilaudid while patient is nothing by mouth pending Gastrointestinal consultation. Will also order a C difficile in setting of bloody diarrhea. 4. Hypokalemia secondary to gastrointestinal losses. Will plan to replace intravenous. Check a magnesium. 5. Hypoalbuminemia, likely related to acute gastrointestinal condition and blood loss. Patient additionally with poor oral intake for the last several days, which could be contributing. Will continue to monitor. 6. Leukocytosis, mildly elevated, possibly related to patient's acute gastrointestinal bleed versus infectious diarrhea versus steroid use. Gastrointestinal PCR panel is pending. Patient denies any recent course of antibiotics or travel. Currently afebrile. Hold off on antibiotics at this time. 7. Fluid, electrolyte, nutrition. Intravenous fluids for supplementation. Electrolyte monitoring and replacement as noted above. Nothing by mouth status pending gastrointestinal evaluation. 8. Prophylaxis. Sequential compression devices. Holding anticoagulation in setting of gastrointestinal bleeding. 9. Cor status is full. 10. Disposition. Patient admitted to observation status on the medical floor at this time. /[id number]/MODL MTDD
[2017-10-06 06:51] LABS: PLATELET COUNT 198 10^3/uL (150-400)
[2017-10-06] MEDS ORDERED: POTASSIUM CL 10 MEQ TAB PO ONE ×2 (09:44→22:16)
[2017-10-06] MEDS ORDERED: methylPREDNISolone SOD SUCC 125 MG/2 ML VIAL IVP ONE (11:08)
[2017-10-06] MEDS ORDERED: TEMAZEPAM 15 MG CAP PO PRN (11:52)
--- NOTE | 2017-10-06 12:23 | HOSPPROG ---
Hospitalist Progress Note Assessment/Plan: Patient is a 52-year-old male with a history of ulcerative colitis, chronic abdominal pain who presented the emergency room with several days of worsening left lower quadrant abdominal pain & distention. Has ongoing bloody diarrhea. Today is my 1st encounter with the patient. Chart reviewed. * abdominal pain, likely secondary from an acute colitis flair -reviewed his CT scan which shows no bowel obstruction, ascites. He has significant retroperitoneal lymphadenopathy, enlargement of the prostate with central dystrophic calcifications noted. He has a hyper enhancing focus within the inferior splenic parenchyma. -suspect this is related to his ulcerative colitis -on IV Dilaudid and oral Oxy IR p.r.n. For pain -IV steroids, Immuran * GI bleed with associated anemia -will recheck his hemoglobin hematocrit this afternoon *to get a colonoscopy * hypokalemia -K 3.8 *underweight with a BMI of 19 *Hypoalbuminemia -due to the above *Plan: recheck H and H this afternoon, Kory prefers no transfusion unless absolutely needed,colonoscopy tomorrow. Subjective: Kory is feeling much better with getting pain meds. Objective: Vital Signs Temp Pulse Resp BP Pulse Ox 36.6 C 68 16 122/78 H 90 L 10/06/17 11:16 10/06/17 11:16 10/06/17 11:16 10/06/17 11:16 10/06/17 11:16 Laboratory Results 10/06/17 06:05 10/06/17 06:05 10/05/17 10/06/17 10/07/17 05:59 05:59 05:59 Intake Total 1800 Output Total 700 Balance 1100 - Physical Exam Constitutional: chronically ill appearing, uncomfortable, other (thin) Eyes: PERRL Ears, Nose, Mouth, Throat: hearing normal Cardiovascular: regular rate and rhythym Respiratory: no respiratory distress Gastrointestinal: tenderness Skin: warm, No normal color (pale) Neurologic: AAOx3 Psychiatric: interacting appropriately, not anxious ICD10 Worksheet Patient Problems: Problems Problem Status Onset Gastrointestinal bleed Acute Ulcerative colitis Acute Abscess Acute Methicillin resistant Staphylococcus aureus infection Acute
[2017-10-06] MEDS: oxyCODONE IR 5 MG TAB PO PRN ×2 (12:29→17:12)
[2017-10-06] MEDS ORDERED: PEG 3350/NA SULF,BICARB,CL/KCL (GAVILYTE-G) 4000 ML BTL PO ONE (13:30)
--- NOTE | 2017-10-06 14:12 | ASMTCMCOM ---
CM Note CM Note Notes: Pt admitted for ulcerative colitis. Anticipate pt will DC with no needs. Date Signed: 10/06/2017 02:11 PM Electronically Signed By:Belle Sotelo LCSW
--- NOTE | 2017-10-06 14:55 | GCON ---
[f rep st] CONSULTATION GI INPATIENT CONSULTATION. I WAS KINDLY REQUESTED TO SEE THE PATIENT BY DR. CARLOS RIVERS IN CONSULTATION FOR A CHIEF COMPLAINT OF BLOODY DIARRHEA. DATE OF CONSULTATION: 10/06/2017 He is a 52-year-old white male who has a known history of ulcerative colitis. This was initially diagnosed many years ago. He is followed in our practice by Neelima Velez and Steven Eason MD. His last colonoscopy was September of 2016, where he received 150 mcg of fentanyl and 6 mg of Versed. Some left-sided "burnt out" ulcerative colitis was seen, with pseudopolyps, but no active disease. The rest of his colon also appeared normal without active disease. Biopsies were unremarkable. Normal terminal ileum. He was last seen in our office only several weeks ago with Neelima Velez. Since 2016, he has developed trouble with bloody diarrhea. He was placed on prednisone initially 60 mg daily, and prior to admission, 50 mg daily. He states this helped somewhat, but was still having 8-10 bloody bowel movement a day. In the emergency department, he was found to have hematocrit of 25%, versus essentially normal at 41% on September 14. He was therefore admitted to the hospital. Besides prednisone, he has been tried on Uceris, but it is unclear if this helped his ulcerative colitis. He was started on azathioprine at just 50 mg daily, but I do not believe he is still taking this (he had some nonspecific concerns of possible side effects from this). Prior to admission, he has been using generic mesalamine 800 mg HD twice a day, but he feels if anything, this makes the diarrhea worse. He denies aspirin and nonsteroidals. Upper endoscopy just in August by Dr. Evans was overall unremarkable. There was some mild candidal esophagitis, that was treated with Diflucan. Hiatal hernia was mentioned. There was some mention of "gastritis", but biopsies were negative, and suspect this was nonsignificant. Negative biopsies for Helicobacter pylori. PAST MEDICAL HISTORY: 1. As above. 2. Chronic pain, for somewhat unclear reasons. 3. Distant history of C diff when he was in [place], according to the patient. 4. Otherwise, noncontributory. MEDICATIONS: Outpatient medications include the above. He is on fentanyl and oxycodone as well. He is on ranitidine 150 mg twice a day, for somewhat unclear reasons, as he denies heartburn. Inpatient medications include IV fluids. ALLERGIES: Include morphine. SOCIAL HISTORY: He lives with his fiancee. He denies alcohol. FAMILY HISTORY: Negative for inflammatory bowel disease. REVIEW OF SYSTEMS: Positive pertinent review of systems as per my HPI. Otherwise, complete review of systems is negative. PHYSICAL EXAM: CONSTITUTIONAL: Nontoxic-appearing, pleasant gentleman. SKIN: Warm, dry. EYES: Pupils equal, round, reactive to light and accommodation. Ear, nose, mouth, throat, oropharynx without masses, moist mucosa. CARDIOVASCULAR: Normal S2, normal PMI. RESPIRATORY: Lungs clear to auscultation and percussion anteriorly. GASTROINTESTINAL: Abdomen soft, nontender. NEUROLOGIC: Grossly nonfocal, with cranial nerves grossly intact. PSYCHIATRIC: Orientation, insight appropriate. MUSCULOSKELETAL: Strength grossly normal throughout, normal station. LABORATORIES: As above. Normal MCV. Normal platelet count. In June, normal CRP, normal iron studies and B12 level. Now, normal basic metabolic panel. Normal liver function tests. Normal lipase. Stool for C difficile and culture pending. CT scan of the abdomen and pelvis with IV contrast now returns unremarkable. ASSESSMENT: Bloody diarrhea, with a significant drop in his hematocrit in just over 3 weeks, from 41% to now 25%. Overall, suspect due to significant activity of his ulcerative colitis. The development of a colon cancer is possible, but less likely. Clostridium difficile or another infectious cause is possible, but less likely. PLAN: 1. Colonoscopy, with a gentle prep, since he is already having diarrhea. With his narcotic use, we will do this with anesthesia. We will do an upper endoscopy at the same time. This was unremarkable just 1 month ago, but with the significant acute drop in his hematocrit, we will make sure he has not developed interval ulcer, etc, (doubt). 2. In the meantime, since our suspicion of active ulcerative colitis is high, we will begin IV steroids. 3. In addition, we will begin a maintenance medication, to help keep him in remission, once he's off steroids. We will use azathioprine at 100 mg daily. I do not think he had any significant outpatient side effects to this medication , based on his history. 4. Imodium as needed for diarrhea. 5. We will stop his mesalamine. This did not help him, and if anything, may have worsened his diarrhea. 6. Recheck hematocrit in the morning. 7. IV fluids. 8. C diff and stool for pathogens pending, but suspect will be negative. Thank you for allowing me to help in management of this patient. /[id number]/MODL QUINTON
[2017-10-06] MEDS: POTASSIUM Cl (KCl) 20 MEQ in 1/2 NS 1,000 ML IV SCH (15:02)
[2017-10-06] MEDS: azaTHIOprine 50 MG TAB PO SCH (15:02)
--- NOTE | 2017-10-06 17:06 | PDMN ---
Medical Necessity Medical necessity: change to IP; los>2mn for abd pain, likely r/t colitis flare. GIB w/anemia,. and hypokalemia; requires colonoscopy 10/07, IV steroids, and possible transfusion; per order and progress note 10/06/17
[2017-10-06] MEDS: ONDANSETRON 4 MG/2 ML VIAL IVP PRN (19:50)
[2017-10-06] MEDS: methylPREDNISolone SOD SUCC 40 MG/ML VIAL IVP SCH (23:37)
[2017-10-07] MEDS: POTASSIUM Cl (KCl) 20 MEQ in 1/2 NS 1,000 ML IV SCH ×2 (00:20→10:09)
[2017-10-07] MEDS: HYDROmorphONE/DILAUDID 1 MG/ML INJ IVP PRN ×2 (00:30→17:47)
[2017-10-07] MEDS: oxyCODONE IR 5 MG TAB PO PRN ×2 (05:33→10:06)
[2017-10-07] MEDS ORDERED: POTASSIUM CL 10 MEQ TAB PO ONE ×2 (09:15→19:42)
--- NOTE | 2017-10-07 09:37 | PDANEPAE ---
ANE History of Present Illness anemia ANE Past Medical History - Cardiovascular History Hx Hypertension: No Hx Arrhythmias: No Hx Chest Pain: No Hx Coronary Artery / Peripheral Vascular Disease: No Hx CHF / Valvular Disease: No Hx Palpitations: No - Pulmonary History Hx COPD: No Hx Asthma/Reactive Airway Disease: No Hx Recent Upper Respiratory Infection: No Hx Oxygen in Use at Home: No Hx Sleep Apnea: No Sleep Apnea Screening Result - Last Documented: Negative - Neurologic History Hx Cerebrovascular Accident: No Hx Seizures: No Hx Dementia: No - Endocrine History Hx Diabetes: No Obesity: no - Renal History Hx Renal Disorders: No - Liver History Hx Hepatic Disorders: No - Neurological & Psychiatric Hx Hx Neurological and Psychiatric Disorders: Yes Neurological / Psychiatric History Comment: anxiety - Cancer History Hx Cancer: No - Congenital Disorder History Hx Congenital Disorders: No - GI History Hx Gastrointestinal Disorders: Yes Gastrointestinal History Comment: ulcerative colitis. colonoscopy with chetham 09/2016. hx of hernia repair - Chronic Pain History Chronic Pain: Yes - Surgical History Prior Surgeries: colonoscopy with chetham while in hospital 09/2016. hernia repair ANE Review of Systems Review of systems is: negative Review of Systems: - Exercise capacity Exercise capacity: >=4 METS ANE Patient History - Allergies Allergies/Adverse Reactions: morphine Allergy (Unknown, Verified 08/02/17 18:27) - Home Medications Home medications: home medication list seen and reviewed Home Medications: Mesalamine [Delzicol] 400 mg PO BID #0 12/14/16 [Last Taken 10/04/17] Ondansetron Odt [Zofran Odt 4 mg (*)] 4 mg PO Q4 PRN #0 12/14/16 [Last Taken 01/10] Cyanocobalamin [Vitamin B12 (*)] 1,000 mcg PO DAILY 10/06/17 [Last Taken ] Temazepam [Restoril 15 MG (*)] 15 mg PO HSPRN PRN 10/06/17 [Last Taken 09/29/17] oxyCODONE IR [Oxycodone Ir (*)] 5 - 10 mg PO DAILY PRN 10/06/17 [Last Taken Unknown] predniSONE 60 mg PO DAILY 10/06/17 [Last Taken 10/05/17] - NPO status NPO Since - Liquids (Date): 10/07/17 NPO Since - Liquids (Time): 00:05 NPO Since - Solids (Date): 10/07/17 NPO Since - Solids (Time): 00:05 - Smoking Hx Smoking Status: Never smoked ANE Labs/Vital Signs - Labs Result Diagrams: 10/07/17 04:16 10/07/17 04:16 - Vital Signs Blood Pressure: 116/63 Heart Rate: 67 Respiratory Rate: 14 O2 Sat (%): 92 Height: 175.26 cm Weight: 59.874 kg ANE Physical Exam - Airway Neck exam: FROM Mallampati Score: Class 1 Mouth exam: normal dental/mouth exam - Pulmonary Pulmonary: no respiratory distress - Cardiovascular Cardiovascular: regular rate and rhythym - ASA Status ASA Status: II ANE Anesthesia Plan Anesthesia Plan: GA with mask
[2017-10-07] MEDS: azaTHIOprine 50 MG TAB PO SCH (10:07)
[2017-10-07] MEDS: methylPREDNISolone SOD SUCC 40 MG/ML VIAL IVP SCH (11:16)
[2017-10-07] MEDS ORDERED: LR 1,000 ML IV ONE (11:47)
[2017-10-07] MEDS ORDERED: PROPOFOL/EMULSION 500 MG/50 ML BOTTLE IV ONE (11:50)
[2017-10-07] MEDS ORDERED: LIDOCAINE 2% 5 ML SDV ONE (11:53)
[2017-10-07] MEDS ORDERED: fentaNYL 100 MCG/2 ML INJ IVP PRN (12:17)
[2017-10-07] MEDS ORDERED: ALBUTEROL 3 ML DEYVIAL IH PRN (12:17)
[2017-10-07] MEDS ORDERED: HYDROmorphONE/DILAUDID 1 MG/ML INJ IVP PRN (12:17)
[2017-10-07] MEDS ORDERED: LR 500 ML IV PRN (12:17)
[2017-10-07] MEDS ORDERED: oxyCODONE IR 5 MG TAB PO PRN (12:17)
[2017-10-07] MEDS ORDERED: NALOXONE HCL 0.4 MG/ML INJ IVP PRN (12:17)
[2017-10-07] MEDS ORDERED: ACETAMINOPHEN 500 MG TAB PO PRN (12:17)
[2017-10-07] MEDS ORDERED: ONDANSETRON 4 MG/2 ML VIAL IVP PRN (12:17)
--- NOTE | 2017-10-07 12:17 | POSTANESTH ---
Post Anesthetic Evaluation Cardiovascular Status: Normal, Stable Respiratory Status: Normal, Stable Level of Consciousness/Mental Status: Can Participate in Eval, Mildly Sleepy, Arousable Pain Control: Adequate, Prn Tx Ordered Nausea/Vomiting Control: Adequate, Prn Tx Ordered Complications Possibly Related to Anesthesia: None Noted
--- NOTE | 2017-10-07 12:24 | GIREPORT ---
[facility] - Endoscopy Department Patient Name: Kory Mcnamara Procedure Date: 10/07/2017 12:04 PM Patient Type: Inpatient Attending MD/ ER Physician: Sriram Chadwick MD Procedure: Upper GI endoscopy Indications: Significant acute post hemorrhagic anemia; EGD, to insure no new upper source. Providers: Sriram Chadwick MD, FACG Referring MD: VELASQUEZ Erazo; VELASQUEZ Sims; Emanuel Carbone MD; [facility] Hospitalist se valle Medicines: See the Anesthesia note for documentation of the administered medicatio ns Complications: No immediate complications. Description of Procedure: After obtaining informed consent, the endoscope was passed under direct vision. Throughout the procedure, the patient's blood pressure, pulse, and oxygen saturations were monitored continuously. The Endoscope was intro duced through the mouth, and advanced to the second part of duodenum. Findings: The esophagus was normal. The stomach was normal. The examined duodenum was normal. Estimated Blood Loss: none. Post Op Diagnosis: - No source found for anemia. Recommendation: - Please see colonoscopy report. Thank you for allowing me to help in the management of this patient. Attending Participation: I personally performed the entire procedure. Netta Bhatia MD Sriram Chadwick MD 10/07/2017 12:23:58 PM This report has been signed electronicallyPeter MD Netta Number of Addenda: 0 Note Initiated On: 10/07/2017 12:04 PM [email or web address]
--- NOTE | 2017-10-07 12:50 | HOSPPROG ---
Hospitalist Progress Note Assessment/Plan: Patient is a 52-year-old male with a history of ulcerative colitis, chronic abdominal pain who presented the emergency room with several days of worsening left lower quadrant abdominal pain & distention. Has ongoing bloody diarrhea. * abdominal pain, likely secondary from an acute colitis flair -pain is much improved -recommendation is [place] suppositories on dc -stop azathioprine -wean off prednisone (Dr Chadwick notes in procedure report a rapid wean and dosing) -biopsies are pending -GI PCR is negative * GI bleed with associated anemia -s/p colonoscopy and EGD, no source of bleeding noted -will need an OP capsule study * hypokalemia -K 3.6 *underweight with a BMI of 19 *Hypoalbuminemia -due to the above *Plan: recheck h and h now and in the morning, reviewed w Kory and his girlfriend results of the procedure, they would like to talk w Dr Chadwick and he will call them. Will monitor overnight and hopefully he'll be ready for dc in the a.m. Subjective: Kory is having less abdominal pain, very anxious about not knowing the exact source of bleeding. Objective: Vital Signs Temp Pulse Resp BP Pulse Ox 36.7 C 67 14 116/63 92 10/07/17 11:49 10/07/17 12:12 10/07/17 12:12 10/07/17 12:12 10/07/17 12:12 Laboratory Results 10/07/17 04:16 10/07/17 04:16 10/06/17 10/07/17 10/08/17 05:59 05:59 05:59 Intake Total 2980 Output Total 650 Balance 2330 - Physical Exam Constitutional: not in pain, other (thin) Eyes: PERRL Ears, Nose, Mouth, Throat: hearing normal Cardiovascular: regular rate and rhythym Respiratory: no respiratory distress Gastrointestinal: normoactive bowel sounds, tenderness (slight in rlq) Skin: warm, No normal color (pale) Musculoskeletal: full muscle strength Neurologic: AAOx3 Psychiatric: anxious ICD10 Worksheet Patient Problems: Problems Problem Status Onset Gastrointestinal bleed Acute Ulcerative colitis Acute Abscess Acute Methicillin resistant Staphylococcus aureus infection Acute
[2017-10-07] MEDS ORDERED: LOPERAMIDE HCL 2 MG CAP PO PRN (13:08)
--- NOTE | 2017-10-07 13:23 | GIREPORT ---
Formerly [facility] Surgical Services - Endoscopy Department Patient Name: Kory Mcnamara Procedure Date: 10/07/2017 12:06 PM Patient Type: Inpatient Attending MD/ ER Physician: Sriram Chadwick MD Procedure: Colonoscopy Indications: Hematochezia, with diarrhea as an outpt. Now, Hct stable at 25%. Stool for G.I. pathogens negative, including c. diff. Negative EGD. Providers: Sriram Chadwick MD, FACG Referring MD: VELASQUEZ Erazo; VELASQUEZ Sims; Emanuel Carbone MD; [facility] Hospitalist se valle Medicines: See the Anesthesia note for documentation of the administered medicatio ns Complications: No immediate complications. Description of Procedure: After obtaining informed consent, the scope was passed under direct vis ion. Throughout the procedure, the patient's blood pressure, pulse, and oxyg en saturations were monitored continuously. The was introduced through the anus and advanced to the terminal ileum. The terminal ileum was photographed . The quality of the bowel preparation was fair. Findings: The terminal ileum appeared normal. A mild diffuse area of friable, granular mucosa was found from 0 to 15 cm proximal to the anus. Biopsies were taken with a cold forceps for histo logy. Some of the friable areas were treated with 7 Fr bicap probe. Rest of colon normal, except for some diffuse small pseudopolyps (from past ulcerative colitis flares). Some old blood present, but no further active bleeding. Estimated Blood Loss: none. Post Op Diagnosis: - Mild ulcerative proctitis only. Suspect this caused his outpt. diarrh ea. Otherwise, no obvious source of bleeding found on either EGD or colonos copy. A small bowel etiology is possible. Regardless, seems to have stopped. Recommendation: - feed - buffcap IV - Canasa suppositories, 1000 mg [place], daily - d/c solumedrol; instead, will do a fast prednisone taper, since he's been on somewhat high doses for at least several weeks - no azathioprine needed - imodium prn - pathology results pending (including of the normal colon, to r/o microscopic colitis (doubt)). I am going off-service after today, so will sign off. I will: a) f/u on bx results, b) arrange an outpt small bowel pill camera endoscopy, to insu re no small bowel source for bleeding, and c) arrange f/u with his outpt G.I. provider. Else, recommend upon d/c: a) canasa suppositories 1000 mg [place] daily x 8 weeks, b) prednisone 40 mg daily for three days, then 35 mg daily for t hree days, then 30 mg daily for three days, and so on, until none, c) iron replacement therapy x 8 weeks, and d) imodium prn. Please call if we can otherwise be of further help [phone]). Thanks! Attending Participation: I personally performed the entire procedure. Netta Bhatia MD Sriram Chadwick MD 10/07/2017 1:22:20 PM This report has been signed electronicallyPeter MD Netta Number of Addenda: 0 Note Initiated On: 10/07/2017 12:06 PM Total Procedure Duration Time 0 hours 28 minutes 48 seconds [email or web address]
--- NOTE | 2017-10-07 16:23 | ASMTCMCOM ---
CM Note CM Note Notes: Chart reviewed. Post procedure today. Keep overnight and dc to home tomorrow. No needs identified. CM available should needs arise. Plan: Home Independent Date Signed: 10/07/2017 04:22 PM Electronically Signed By:Nadeen Ortiz RN
[2017-10-07] MEDS ORDERED: MESALAMINE 1,000 MG SUPP PR SCH (21:00)
[2017-10-08] MEDS: ONDANSETRON 4 MG/2 ML VIAL IVP PRN (00:31)
[2017-10-08] MEDS: HYDROmorphONE/DILAUDID 1 MG/ML INJ IVP PRN (00:32)
[2017-10-08] MEDS ORDERED: POTASSIUM CL 10 MEQ TAB PO ONE (08:07)
[2017-10-08] MEDS ORDERED: FERROUS SULFATE 325 MG TAB PO SCH (09:00)
[2017-10-08] MEDS ORDERED: predniSONE 20 MG TAB PO SCH (09:00)
[2017-10-08 09:20] VITALS: BP 118/85
--- NOTE | 2017-10-08 10:19 | PDDCSUM ---
Discharge Summary Discharge Summary: The patient is a 52 yo male with hx of UC who was admitted with left sided abdominal pain and GI bleed. The GI bleed resolved spontaneously, he did not required transfusion. An upper endoscopy and colonoscopy were unrevealing for etiology of bleed. Colonoscopy did show proctitis. Hgb is stable and he has not had recurrence. GI will set him up with an outpatient capsule endoscopy. He is on steroids and these are being tapered off. He has started Canasa suppositories and will be treated for 8 weeks. He will also get Iron supplementation of 8 weeks. He will cont to use Imodium as needed for diarrhea. GI PCR was negative DDX: -Ulcerative colitis with proctitis -GI bleed -Hypokalemia -Acute blood loss anemia Exam: VSS NAD AAOX3 RRR CTAB S/NT/ND NO EDEMA SKIN WARM MEDS: SEE MED REC F/U: PER ABOVE TOTAL TIME SPENT ON D/C IS 35 MINS
[2017-10-08] MEDS: oxyCODONE IR 5 MG TAB PO PRN (11:30)
--- NOTE | 2017-10-08 11:43 | ASMTCMCOM ---
CM Note CM Note Notes: Pt is being D/C home independent today. There continue to be no identified D/C needs. D/C Plan: Independent Date Signed: 10/08/2017 11:42 AM Electronically Signed By:Leydi Benson
--- NOTE | 2017-10-08 11:45 | ASMTLACE ---
KATE Length of stay for Answers: 2 days current admission Acuity / Level of Answers: Yes Care: Did the patient have an inpatient admission? Comorbidities - select Answers: Other Notes: ulcerative colitis all that apply # of Emergency department Answers: 1-2 visits in the last 6 months Score: 7 Date Signed: 10/08/2017 11:44 AM Electronically Signed By:Leydi Benson
== END 2017-10-08 11:30 | disposition home or self-care (01) | DRG 245 ==
LOC: F1N 10-06 10:00 → OBSVTOIN 10-06 15:41
PROVIDERS: ADMIT Family Medicine; ATTEND Family Medicine
PROC: 0DJ08ZZ Inspection of Upper Intestinal Tract, Via Natural or Artificial Opening Endoscopic (ICD-10-PCS; principal; 2017-10-06)
PROC: 0DBN8ZX Excision of Sigmoid Colon, Via Natural or Artificial Opening Endoscopic, Diagnostic (ICD-10-PCS; principal; 2017-10-06)
PROC: 0DBP8ZX Excision of Rectum, Via Natural or Artificial Opening Endoscopic, Diagnostic (ICD-10-PCS; principal; 2017-10-06)
DX: K51.90 Ulcerative colitis, unspecified, without complications (principal); K51.20 Ulcerative (chronic) proctitis without complications; D62 Acute posthemorrhagic anemia; E87.6 Hypokalemia; K92.2 Gastrointestinal hemorrhage, unspecified; K21.9 Gastro-esophageal reflux disease without esophagitis; G89.29 Other chronic pain; R63.6 Underweight; Z79.52 Long term (current) use of systemic steroids; Z68.1 Body mass index [BMI] 19.9 or less, adult; Z86.14 Personal history of Methicillin resistant Staphylococcus aureus infection
CPT/HCPCS: 96374; J1170; J2405; J2704; J2920; J2930; J3010; J3480; J7500; J7512; Q9967

== ENCOUNTER 2017-12-28 17:36 | Emergency (ER) | payer MEDICAID ==
--- NOTE | 2017-12-28 17:47 | EDPHY ---
H & P Stated Complaint: abd pain, rectal bleeding Time Seen by Provider: 12/28/17 17:46 HPI/ROS: CHIEF COMPLAINT: Abdominal pain, rectal bleeding HISTORY OF PRESENT ILLNESS: The patient has a history of ulcerative colitis and presents to the ED with abdominal pain rectal bleeding. The patient was hospitalized in September of this year for similar symptoms. He underwent endoscopy which demonstrated proctitis without an obvious source of a GI bleed. The patient is trying to get on Asacol through the help of Gastro[facility]ology of the [facility]. The patient is not scheduled to see them until the of this month. The patient presents after he developed bloody stools and abdominal pain over the past 2 days. He has taken 40 mg of prednisone for the past 2 days. The patient denies any fever, cough or congestion. He complains of moderate generalized abdominal pain. He denies additional acute complaints. REVIEW OF SYSTEMS: A comprehensive 10 point review of systems is otherwise negative aside from elements mentioned in the history of present illness. Source: Patient - Personal History Current Tetanus/Diphtheria Vaccine: Yes Current Tetanus Diphtheria and Acellular Pertussis (TDAP): Yes Tetanus Vaccine Date: 2012 - Medical/Surgical History Hx Asthma: No Hx Chronic Respiratory Disease: No Hx Diabetes: No Hx Cardiac Disease: No Hx Renal Disease: No Hx Cirrhosis: No Hx Alcoholism: No Hx HIV/AIDS: No Hx Splenectomy or Spleen Trauma: No Other PMH: Ulcerative coliitis, anxiety, chronic pain, clavicle fx, hernia repair - Social History Smoking Status: Never smoked - Physical Exam Exam: General Appearance: Alert, no distress Eyes: Pupils equal and round no pallor or injection ENT, Mouth: Mucous membranes moist Respiratory: There are no retractions, lungs are clear to auscultation Cardiovascular: Regular rate and rhythm Gastrointestinal: Mild generalized abdominal tenderness Neurological: 5/5 strength noted all 4 extremities Skin: Warm and dry, no rashes Musculoskeletal: Neck is supple nontender Extremities: symmetrical, full range of motion Constitutional: Initial Vital Signs Temperature (C) 36.9 C 12/28/17 17:41 Heart Rate 123 H 12/28/17 17:41 Respiratory Rate 16 12/28/17 17:41 Blood Pressure 158/106 H 12/28/17 17:41 O2 Sat (%) 95 12/28/17 17:41 O2 Delivery Mode Room Air Allergies/Adverse Reactions: morphine Allergy (Unknown, Verified 12/28/17 17:39) Home Medications: Medication Instructions Recorded Ondansetron Odt [Zofran Odt 4 mg 4 mg PO Q4 PRN #0 12/14/16 (*)] Cyanocobalamin [Vitamin B12 (*)] 1,000 mcg PO DAILY 10/06/17 Temazepam [Restoril 15 MG (*)] 15 mg PO HSPRN PRN 10/06/17 oxyCODONE IR [Oxycodone Ir (*)] 5 - 10 mg PO DAILY PRN 10/06/17 Ferrous Sulfate [Ferrous Sulf 325 325 mg PO BID #120 tab 10/08/17 MG (*)] predniSONE 40 mg PO DAILY #22 tablet 10/08/17 oxyCODONE/APAP 5/325 [Percocet 1 - 2 tab PO Q6-8PRN PRN #20 tab 12/28/17 5/325 (RX)] predniSONE [Prednisone] 10 mg PO AD #65 tablet 12/28/17 Medical Decision Making ED Course/Re-evaluation: I reviewed the patient's past medical records including his hospitalization and endoscopy results. The patient had an IV established. He received a L of normal saline. The patient received IV pain medications. The patient was given 125 mg of Solu-Medrol IV The patient's laboratory studies demonstrate no evidence of a significant leukocytosis or critical anemia. There is no evidence of a metabolic derangement. The patient's coagulation studies are within normal limits. Re-evaluated the patient at 7:40 p.m.. He is comfortable going home. We will start him on a tapering dose of prednisone and give him some pain medications. He understands to return to the ED for increasing rectal bleeding, lightheadedness, fever or other concerns. He will follow up with his diaper machine tender as scheduled this month. Differential Diagnosis: Differential diagnosis considered includes peritonitis, colitis, upper GI bleed , lower GI bleed, critical anemia, dehydration - Data Points Laboratory Results: Laboratory Results 12/28/17 18:15 12/28/17 18:15 12/28/17 12/28/17 12/28/17 18:15 18:15 18:15 WBC 10.15 10^3/uL H 10^3/uL (3.80-9.50) RBC 4.85 10^6/uL 10^6/uL (4.40-6.38) Hgb 15.2 g/dL g/dL (13.7-17.5) Hct 43.8 % % (40.0-51.0) MCV 90.3 fL fL (81.5-99.8) MCH 31.3 pg pg (27.9-34.1) MCHC 34.7 g/dL g/dL (32.4-36.7) RDW 12.7 % % (11.5-15.2) Plt Count 306 10^3/uL 10^3/uL (150-400) MPV 10.1 fL fL (8.7-11.7) Neut % (Auto) 93.4 % H % (39.3-74.2) Lymph % (Auto) 5.4 % L % (15.0-45.0) [place] % (Auto) 0.7 % L % (4.5-13.0) Eos % (Auto) 0.0 % L % (0.6-7.6) Baso % (Auto) 0.3 % % (0.3-1.7) Nucleat RBC Rel Count 0.0 % % (0.0-0.2) Absolute Neuts (auto) 9.48 10^3/uL H 10^3/uL (1.70-6.50) Absolute Lymphs (auto) 0.55 10^3/uL L 10^3/uL (1.00-3.00) Absolute Monos (auto) 0.07 10^3/uL L 10^3/uL (0.30-0.80) Absolute Eos (auto) 0.00 10^3/uL L 10^3/uL (0.03-0.40) Absolute Basos (auto) 0.03 10^3/uL 10^3/uL (0.02-0.10) Absolute Nucleated RBC 0.00 10^3/uL 10^3/uL (0-0.01) Immature Gran % 0.2 % % (0.0-1.1) Immature Gran # 0.02 10^3/uL 10^3/uL (0.00-0.10) RBC/WBC/PLT Morphology TNP Platelet Estimate TNP PT 14.7 SEC SEC (12.0-15.0) INR 1.13 (0.83-1.16) APTT 32.0 SEC SEC (23.0-38.0) Sodium 141 mEq/L mEq/L (135-145) Potassium 4.2 mEq/L mEq/L (3.3-5.0) Chloride 103 mEq/L mEq/L (97-110) Carbon Dioxide 27 mEq/l mEq/l (22-31) Anion Gap 11 mEq/L mEq/L (8-16) BUN 18 mg/dL mg/dL (7-23) Creatinine 1.0 mg/dL mg/dL (0.7-1.3) Estimated GFR > 60 Glucose 125 mg/dL H mg/dL (70-100) Calcium 9.8 mg/dL mg/dL (8.5-10.4) Total Bilirubin 0.4 mg/dL mg/dL (0.1-1.4) Conjugated Bilirubin 0.1 mg/dL mg/dL (0.0-0.5) Unconjugated Bilirubin 0.3 mg/dL mg/dL (0.0-1.1) AST 16 IU/L L IU/L (17-59) ALT 12 IU/L L IU/L (21-72) Alkaline Phosphatase 58 IU/L IU/L (38-126) Total Protein 7.0 g/dL g/dL (6.3-8.2) Albumin 4.6 g/dL g/dL (3.5-5.0) Medications Given: Discontinued Medications Fentanyl (Sublimaze) 100 mcg IVP EDNOW ONE Stop: 12/28/17 18:10 Last Admin: 12/28/17 18:22 Dose: 100 mcg Sodium Chloride (Ns) 1,000 mls @ 0 mls/hr IV EDNOW ONE; Wide Open PRN Reason: Protocol Stop: 12/28/17 18:10 Last Admin: 12/28/17 18:22 Dose: 1,000 mls Methylprednisolone Sodium Succinate (Solu-Medrol) 125 mg IVP EDNOW ONE Stop: 12/28/17 18:11 Last Admin: 12/28/17 18:22 Dose: 125 mg Departure - Departure Disposition: Home, Routine, Self-Care Clinical Impression: Ulcerative colitis Condition: Good Instructions: Ulcerative Colitis (ED) Additional Instructions: 1. Please take prednisone as directed. 2. Percocet as needed for pain. 3. Return to the ED for increasing pain, bleeding, lightheadedness or other concerns. 4. Please follow-up with your primary care provider in Gastroenterology as scheduled. Referrals: Verna Washburn [Primary Care Provider] - As per Instructions
[2017-12-28] MEDS ORDERED: NS 1,000 ML IV ONE (18:09)
[2017-12-28] MEDS ORDERED: fentaNYL 100 MCG/2 ML INJ IVP ONE (18:09)
[2017-12-28] MEDS ORDERED: methylPREDNISolone SOD SUCC 125 MG/2 ML VIAL IVP ONE (18:10)
[2017-12-28 18:39] LABS: PLATELET COUNT 306 10^3/uL (150-400)
[2017-12-28 18:48] LABS: INR 1.13 (0.83-1.16); PROTIME(PATIENT) 14.7 SEC (12.0-15.0)
[2017-12-28] MEDS ORDERED: OXYCODONE/APAP 5/325MG PREPACK#4 BTL TAKEHOME ONE ×2 (20:02→20:03)
[2017-12-28 20:11] VITALS: BP 130/90
== END 2017-12-28 20:11 | disposition home or self-care (01) ==
DX: K51.90 Ulcerative colitis, unspecified, without complications (principal); E86.9 Volume depletion, unspecified
CPT/HCPCS: 96374; J2930; J3010

== ENCOUNTER 2018-03-28 20:20 | Emergency (ER) | payer MEDICAID ==
--- NOTE | 2018-03-28 20:42 | EDPHY ---
H & P Stated Complaint: Cholytis Time Seen by Provider: 03/28/18 20:41 HPI/ROS: HPI: This is a 53-year-old male who presents with Chief Complaint: Abdominal pain, colitis Location: Lower abdominal Quality: Pain Duration: 1 week Signs and Symptoms: no fever, no nausea, no vomiting, no hematemesis, + blood in stool, no abdominal bloating, + diarrhea, no back pain, no urinary symptoms, no testicular/groin pain, no indigestion, no chest pain, no shortness of breath Timing: Acute on chronic Severity: [id number] Context: Patient has a history of ulcerative colitis presents with one-week history of lower abdominal pain accompanied by loose stools and blood in his stool. Patient reports that there was a in the family and he and his significant other had to go to [place] for 2 days. During that time he missed his Imuran dose but continue to take mesalamine. He does not take daily prednisone. He was seen in December in this emergency room for ulcerative colitis flare and treated as an outpatient patient. Patient was hospitalized in September of this year for similar symptoms. He underwent endoscopy which demonstrated proctitis without an obvious source of a GI bleed. He is drinking plenty of liquids to prevent dehydration. He denies any fevers, urinary symptoms, hematemesis, back pain. He complains of lower abdominal pain that is constant, cramping, severe in nature. Followed by [facility]ology of [facility]. Modifying Factors: Regular home medications Comment: ROS: A comprehensive 10 system review of systems is otherwise negative aside from elements mentioned in the history of present illness. MEDICAL/SURGICAL/SOCIAL HISTORY: Medical history: Ulcerative colitis, anxiety, chronic pain, clavicle fx, GERD Surgical history: colon biopsy-GIB, hernia repair Social history: Homeless. Denies drug use. Family history noncontributory. CONSTITUTIONAL: Nontoxic-appearing middle-aged white male, awake and alert, no obvious distress HEENT: Atraumatic and normocephalic, PERRL, EOMI. Nares patent; no rhinorrhea; no nasal mucosal edema. Tympanic membranes clear. Oropharynx clear, no exudate and moist pink mucosa. Airway patent. No lymphadenopathy. No meningismus. Cardiovascular: Normal S1/S2, tachycardia, regular rhythm, without murmur rub or gallop. PULMONARY/CHEST: Symmetrical and nontender. Clear to auscultation bilaterally. Good air movement. No accessory muscle usage. ABDOMEN: Soft, nondistended, moderate lower abdominal tenderness, no rebound, no guarding, no peritoneal signs, no masses or organomegaly. No CVAT. EXTREMITIES: 2/2 pulses, strength 5/5, no deformities, no clubbing, no cyanosis or edema. NEUROLOGICAL: no focal neuro deficits. GCS 15. SKIN: Warm and dry, no erythema. no rash. Good capillary refill. Source: Patient, Old records Exam Limitations: No limitations - Personal History Current Tetanus Diphtheria and Acellular Pertussis (TDAP): Yes Tetanus Vaccine Date: 2012 - Medical/Surgical History Hx Asthma: No Hx Chronic Respiratory Disease: No Hx Diabetes: No Hx Cardiac Disease: No Hx Renal Disease: No Hx Cirrhosis: No Hx Alcoholism: No Hx HIV/AIDS: No Hx Splenectomy or Spleen Trauma: No Other PMH: Ulcerative coliitis, anxiety, chronic pain, clavicle fx, hernia repair, cholytis, GERD, colon biopsy-GIB - Social History Smoking Status: Never smoked Constitutional: Initial Vital Signs Temperature (C) 36.5 C 03/28/18 20:25 Heart Rate 111 H 03/28/18 20:25 Respiratory Rate 18 03/28/18 20:25 Blood Pressure 172/121 H 03/28/18 20:25 O2 Sat (%) 95 03/28/18 20:25 O2 Delivery Mode Room Air Allergies/Adverse Reactions: morphine Allergy (Unknown, Verified 03/28/18 20:24) Home Medications: Medication Instructions Recorded Ondansetron Odt [Zofran Odt 4 mg 4 mg PO Q4 PRN #0 12/14/16 (*)] Cyanocobalamin [Vitamin B12 (*)] 1,000 mcg PO DAILY 10/06/17 Temazepam [Restoril 15 MG (*)] 15 mg PO HSPRN PRN 10/06/17 oxyCODONE IR [Oxycodone Ir (*)] 5 - 10 mg PO DAILY PRN 10/06/17 Ferrous Sulfate [Ferrous Sulf 325 325 mg PO BID #120 tab 10/08/17 MG (*)] oxyCODONE/APAP 5/325 [Percocet 1 - 2 tab PO Q6-8PRN PRN #20 tab 12/28/17 5/325 (RX)] predniSONE [Prednisone] 10 mg PO AD #65 tablet 12/28/17 Mesalamine 03/28/18 azaTHIOprine 03/28/18 oxyCODONE/APAP 5/325 [Percocet 1 - 2 tab PO Q4H PRN #12 tab 03/28/18 5/325 (*)] predniSONE 40 mg PO DAILY #10 tab 03/28/18 Medical Decision Making ED Course/Re-evaluation: Vital signs reviewed and show mild tachycardia and elevated blood pressure. IV access and laboratory studies obtained. Patient tolerating oral liquids and decision made not to give IV fluids. Patient given IV Dilaudid 1 mg and 125 mg of Solu-Medrol 0: Labs reviewed. No signs of leukocytosis/anemia/platelet dysfunction/MEENA/ elevated LFTs/electrolyte imbalance/pancreatitis. 2199: Reassessed patient who reports 40% improvement in symptoms. IV Dilaudid 1 mg and IV promethazine 6.25 mg given. Offer patient admission and he wishes to be discharged with outpatient follow- up with Gastroenterology. I feel that this is reasonable due to stable vital signs, normal laboratory studies, tolerating p.o. 2247: Reassessed patient. Reports 60% improvement in symptoms. Asking to be discharged home. No bloody bowel movements while in the emergency room. Abdomen is soft and minimally tender. No indication for imaging. Vital signs stable at discharge with resolution of tachycardia. Patient will be discharged with prednisone 40 mg daily, pain medications and gastroenterology follow-up in the next 5-7 days. This patient was seen under the supervision of my secondary supervising physician. I evaluated care for this patient independently. Discussed this patient with Dr. Valdes who did not see the patient. Differential Diagnosis: Abdominal pain including but not limited to appendicitis, cholecystitis, gastritis and urinary tract infection. - Data Points Laboratory Results: Laboratory Results 03/28/18 20:40 03/28/18 20:40 03/28/18 03/28/18 20:40 20:40 WBC 8.25 10^3/uL 10^3/uL (3.80-9.50) RBC 4.45 10^6/uL 10^6/uL (4.40-6.38) Hgb 14.7 g/dL g/dL (13.7-17.5) Hct 41.9 % % (40.0-51.0) MCV 94.2 fL fL (81.5-99.8) MCH 33.0 pg pg (27.9-34.1) MCHC 35.1 g/dL g/dL (32.4-36.7) RDW 13.9 % % (11.5-15.2) Plt Count 302 10^3/uL 10^3/uL (150-400) MPV 9.6 fL fL (8.7-11.7) Neut % (Auto) 74.3 % H % (39.3-74.2) Lymph % (Auto) 17.7 % % (15.0-45.0) [place] % (Auto) 7.0 % % (4.5-13.0) Eos % (Auto) 0.0 % L % (0.6-7.6) Baso % (Auto) 0.8 % % (0.3-1.7) Nucleat RBC Rel Count 0.0 % % (0.0-0.2) Absolute Neuts (auto) 6.12 10^3/uL 10^3/uL (1.70-6.50) Absolute Lymphs (auto) 1.46 10^3/uL 10^3/uL (1.00-3.00) Absolute Monos (auto) 0.58 10^3/uL 10^3/uL (0.30-0.80) Absolute Eos (auto) 0.00 10^3/uL L 10^3/uL (0.03-0.40) Absolute Basos (auto) 0.07 10^3/uL 10^3/uL (0.02-0.10) Absolute Nucleated RBC 0.00 10^3/uL 10^3/uL (0-0.01) Immature Gran % 0.2 % % (0.0-1.1) Immature Gran # 0.02 10^3/uL 10^3/uL (0.00-0.10) Sodium 138 mEq/L mEq/L (135-145) Potassium 3.9 mEq/L mEq/L (3.5-5.2) Chloride 102 mEq/L mEq/L (97-110) Carbon Dioxide 28 mEq/l mEq/l (22-31) Anion Gap 8 mEq/L mEq/L (6-14) BUN 14 mg/dL mg/dL (7-23) Creatinine 0.8 mg/dL mg/dL (0.7-1.3) Estimated GFR > 60 Glucose 96 mg/dL mg/dL (70-100) Calcium 9.9 mg/dL mg/dL (8.5-10.4) Total Bilirubin 0.7 mg/dL mg/dL (0.1-1.4) Conjugated Bilirubin 0.2 mg/dL mg/dL (0.0-0.5) Unconjugated Bilirubin 0.5 mg/dL mg/dL (0.0-1.1) AST 17 IU/L IU/L (17-59) ALT 19 IU/L L IU/L (21-72) Alkaline Phosphatase 73 IU/L IU/L (38-126) Total Protein 7.7 g/dL g/dL (6.3-8.2) Albumin 4.8 g/dL g/dL (3.5-5.0) Lipase 108 IU/L IU/L (23-300) Medications Given: Discontinued Medications Hydromorphone HCl (Dilaudid) 1 mg IVP EDNOW ONE Stop: 03/28/18 20:48 Last Admin: 03/28/18 20:52 Dose: 1 mg Hydromorphone HCl (Dilaudid) 1 mg IVP EDNOW ONE Stop: 03/28/18 22:07 Last Admin: 03/28/18 22:13 Dose: 1 mg Methylprednisolone Sodium Succinate (Solu-Medrol) 125 mg IVP EDNOW ONE Stop: 03/28/18 20:49 Last Admin: 03/28/18 20:52 Dose: 125 mg Oxycodone/Acetaminophen (Percocet 5/325mg Prepack#4) 1 btl TAKEHOME EDNOW ONE Stop: 03/28/18 22:47 Last Admin: 03/28/18 22:55 Dose: 1 btl Promethazine HCl (Phenergan) 6.25 mg IVP ONCE ONE Stop: 03/28/18 22:07 Last Admin: 03/28/18 22:12 Dose: 6.25 mg Departure - Departure Disposition: Home, Routine, Self-Care Clinical Impression: Ulcerative colitis without complications Qualifiers: Ulcerative colitis location: other ulcerative colitis Qualified Code(s): K51.80 - Other ulcerative colitis without complications Condition: Good Instructions: Oxycodone/Acetaminophen (By mouth), Rectal Bleeding (ED), Ulcerative Colitis (ED) Additional Instructions: Consume a minimum of 8-10 glasses of water or electrolyte fluid replacement drinks that include Gatorade, Powerade, Pedialyte. Eat a bland diet for the next 48 hours and then slowly advance as tolerated. Take ulcerative colitis medications as prescribed. Take prednisone 40 mg daily x 7-10 days. Take Percocet 1 tab every 4-6 hours as needed for pain. Follow-up with [facility] in the next 5-7 days. Return to the Emergency Room if symptoms do not resolve in the next 72 hours, you spike a fever > 102 F, or experience intractable abdominal pain/nausea/ vomiting. Referrals: [facility] of [facility] [Provider Group] - As per Instructions Prescriptions: oxyCODONE/APAP 5/325 [Percocet 5/325 (*)] 1 - 2 tab PO Q4H PRN #12 tab PRN Reason: Pain, Severe predniSONE 40 mg PO DAILY #10 tab
[2018-03-28] MEDS ORDERED: HYDROmorphONE/DILAUDID 2 MG/ML INJ IVP ONE ×2 (20:47→22:06)
[2018-03-28] MEDS ORDERED: methylPREDNISolone SOD SUCC 125 MG/2 ML VIAL IVP ONE (20:48)
[2018-03-28 20:49] LABS: PLATELET COUNT 302 10^3/uL (150-400)
[2018-03-28] MEDS ORDERED: HYDROmorphONE/DILAUDID 1 MG/ML INJ ONE ×2 (20:51→22:09)
[2018-03-28] MEDS ORDERED: PROMETHAZINE HCL 25 MG/ML INJ IVP ONE (22:06)
[2018-03-28] MEDS ORDERED: OXYCODONE/APAP 5/325MG PREPACK#4 BTL TAKEHOME ONE (22:46)
[2018-03-28 23:01] VITALS: BP 134/66
== END 2018-03-28 23:00 | disposition home or self-care (01) ==
DX: K51.80 Other ulcerative colitis without complications (principal)
CPT/HCPCS: 96374; J1170; J2550; J2930

== ENCOUNTER 2018-04-30 15:14 | Observation (INO) | payer MEDICAID ==
[2018-04-30] MEDS ORDERED: NS 1,000 ML IV ONE (15:44)
[2018-04-30] MEDS ORDERED: methylPREDNISolone SOD SUCC 125 MG/2 ML VIAL IVP ONE (15:44)
[2018-04-30 15:50] LABS: PLATELET COUNT 310 10^3/uL (150-400)
--- NOTE | 2018-04-30 15:50 | EDPHY ---
H & P Stated Complaint: "My ulcerative colitis has flared up";abd cramps, bloody stools x 3days Time Seen by Provider: 04/30/18 15:23 HPI/ROS: CHIEF COMPLAINT: Bloody diarrhea HISTORY OF PRESENT ILLNESS: 53-year-old male with ulcerative colitis presents with bloody diarrhea. Onset an ulcerative colitis flare in mid March. He was placed on a tapering dose of prednisone and mesalamine 1 month ago. Initially he was getting better, but over the last 3 days he has had increasing bloody diarrhea. After eating or drinking anything, he develops abdominal cramping, followed by bloody diarrhea. He is seen by Dr. Chadwick at [facility]. REVIEW OF SYSTEMS: complete 10 point ROS reviewed and is negative except for the noted elements in the HPI - Personal History Current Tetanus Diphtheria and Acellular Pertussis (TDAP): Yes Tetanus Vaccine Date: 2012 - Medical/Surgical History Hx Asthma: No Hx Chronic Respiratory Disease: No Hx Diabetes: No Hx Cardiac Disease: No Hx Renal Disease: No Hx Cirrhosis: No Hx Alcoholism: No Hx HIV/AIDS: No Hx Splenectomy or Spleen Trauma: No Other PMH: Ulcerative coliitis, anxiety, chronic pain, clavicle fx, hernia repair, cholytis, GERD, colon biopsy-GIB - Social History Smoking Status: Never smoked Drug Use: None - Physical Exam Exam: General Appearance: Alert, pleasant Eyes: Pupils equal and round, no conjunctival pallor ENT, Mouth: Mucous membranes moist Neck: Normal inspection Respiratory: Lungs are clear to auscultation Cardiovascular: Regular rate and rhythm Gastrointestinal: Abdomen is soft and nontender, normal bowel sounds Neurological: A&O, nonfocal exam Skin: Warm and dry Extremities: Normal inspection Psychiatric: Mood and affect normal Constitutional: Initial Vital Signs Temperature (C) 36.8 C 04/30/18 15:15 Heart Rate 92 04/30/18 15:15 Respiratory Rate 18 04/30/18 15:15 Blood Pressure 144/105 H 04/30/18 15:15 O2 Sat (%) 97 04/30/18 15:15 O2 Delivery Mode Room Air Allergies/Adverse Reactions: morphine Allergy (Mild, Verified 04/30/18 15:16) Home Medications: Medication Instructions Recorded Temazepam [Restoril 15 MG (*)] 15 mg PO HSPRN PRN 10/06/17 Calcium Carbonate [Calcium] 500 mg PO DAILY 04/30/18 Ferrous Sulfate [Ferrous Sulf 325 325 mg PO BID 04/30/18 MG (*)] Inulin/Chromium Picolinate [Fiber 2 each PO DAILY 04/30/18 Select Gummies Tab Chew] Mesalamine [Canasa Suppository (*)] 1,000 mg [place] HS 04/30/18 Vitamin B Complex [Vitamin B 1 each PO DAILY 04/30/18 Complex (OTC)] azaTHIOprine [Imuran 50 mg (*)] 50 mg PO DAILY 04/30/18 oxyCODONE IR [Oxycodone Ir (*)] 5 mg PO TID PRN 04/30/18 predniSONE 80 mg PO DAILY 04/30/18 traMADol [Ultram 50 mg (*)] 50 mg PO Q4 PRN 04/30/18 Medical Decision Making ED Course/Re-evaluation: This patient with ulcerative colitis presents with bloody diarrhea. He requests a dose of IV Solu-Medrol, as this usually slows down the bleeding. IV normal saline 1 L and Solu-Medrol 125 mg IV given. Ativan 1 mg IV given for abdominal cramping. Reassessed pt several times, felt weak after Ativan IV, multiple requests for IV Dilaudid declined. Does not appear in pain, no bloody stools in ED. No indication for imaging today; no fever, normal WBC and benign exam. Oxycodone 5mg po ordered, pt declined. Discharge home d/w pt, feels to sick to go home. Abd remains benign. Will admit for obs. Differential Diagnosis: Includes does not limited to AVM, diverticular bleed, polyp, upper GI bleed - Data Points Laboratory Results: Laboratory Results 04/30/18 15:40 04/30/18 15:40 04/30/18 04/30/18 04/30/18 15:40 15:40 15:40 WBC RBC Hgb Hct 44.6 % % (40.0-51.0) MCV MCH MCHC RDW Plt Count MPV Neut % (Auto) Lymph % (Auto) [place] % (Auto) Eos % (Auto) Baso % (Auto) Nucleat RBC Rel Count Absolute Neuts (auto) Absolute Lymphs (auto) Absolute Monos (auto) Absolute Eos (auto) Absolute Basos (auto) Absolute Nucleated RBC Immature Gran % Immature Gran # ESR 10 MM/HR MM/HR (0-20) Sodium 140 mEq/L mEq/L (135-145) Potassium 3.5 mEq/L mEq/L (3.5-5.2) Chloride 105 mEq/L mEq/L (97-110) Carbon Dioxide 27 mEq/l mEq/l (22-31) Anion Gap 8 mEq/L mEq/L (6-14) BUN 19 mg/dL mg/dL (7-23) Creatinine 0.9 mg/dL mg/dL (0.7-1.3) Estimated GFR > 60 Glucose 94 mg/dL mg/dL (70-100) Calcium 9.6 mg/dL mg/dL (8.5-10.4) Total Bilirubin 1.0 mg/dL mg/dL (0.1-1.4) Conjugated Bilirubin 0.3 mg/dL mg/dL (0.0-0.5) Unconjugated Bilirubin 0.7 mg/dL mg/dL (0.0-1.1) AST 13 IU/L L IU/L (17-59) ALT 18 IU/L L IU/L (21-72) Alkaline Phosphatase 66 IU/L IU/L (38-126) C-Reactive Protein < 5.0 mg/L mg/L (<10.0) Total Protein 7.0 g/dL g/dL (6.3-8.2) Albumin 4.2 g/dL g/dL (3.5-5.0) Lipase 109 IU/L IU/L (23-300) 04/30/18 15:40 WBC 9.98 10^3/uL H 10^3/uL (3.80-9.50) RBC 4.87 10^6/uL 10^6/uL (4.40-6.38) Hgb 15.6 g/dL g/dL (13.7-17.5) Hct 44.6 % % (40.0-51.0) MCV 91.6 fL fL (81.5-99.8) MCH 32.0 pg pg (27.9-34.1) MCHC 35.0 g/dL g/dL (32.4-36.7) RDW 13.0 % % (11.5-15.2) Plt Count 310 10^3/uL 10^3/uL (150-400) MPV 9.4 fL fL (8.7-11.7) Neut % (Auto) 62.0 % % (39.3-74.2) Lymph % (Auto) 26.7 % % (15.0-45.0) [place] % (Auto) 9.5 % % (4.5-13.0) Eos % (Auto) 0.3 % L % (0.6-7.6) Baso % (Auto) 0.4 % % (0.3-1.7) Nucleat RBC Rel Count 0.0 % % (0.0-0.2) Absolute Neuts (auto) 6.19 10^3/uL 10^3/uL (1.70-6.50) Absolute Lymphs (auto) 2.66 10^3/uL 10^3/uL (1.00-3.00) Absolute Monos (auto) 0.95 10^3/uL H 10^3/uL (0.30-0.80) Absolute Eos (auto) 0.03 10^3/uL 10^3/uL (0.03-0.40) Absolute Basos (auto) 0.04 10^3/uL 10^3/uL (0.02-0.10) Absolute Nucleated RBC 0.00 10^3/uL 10^3/uL (0-0.01) Immature Gran % 1.1 % % (0.0-1.1) Immature Gran # 0.11 10^3/uL H 10^3/uL (0.00-0.10) ESR Sodium Potassium Chloride Carbon Dioxide Anion Gap BUN Creatinine Estimated GFR Glucose Calcium Total Bilirubin Conjugated Bilirubin Unconjugated Bilirubin AST ALT Alkaline Phosphatase C-Reactive Protein Total Protein Albumin Lipase Medications Given: Discontinued Medications Sodium Chloride (Ns) 1,000 mls @ 0 mls/hr IV EDNOW ONE; Wide Open PRN Reason: Protocol Stop: 04/30/18 15:45 Last Admin: 04/30/18 15:53 Dose: 1,000 mls Lorazepam (Ativan Injection) 1 mg IVP EDNOW ONE Stop: 04/30/18 16:13 Last Admin: 04/30/18 16:15 Dose: 1 mg Methylprednisolone Sodium Succinate (Solu-Medrol) 125 mg IVP EDNOW ONE Stop: 04/30/18 15:45 Last Admin: 04/30/18 15:54 Dose: 125 mg Oxycodone HCl (Oxycodone Ir) 5 mg PO EDNOW ONE Stop: 04/30/18 18:09 Last Admin: 04/30/18 18:30 Dose: Not Given Oxycodone/Acetaminophen (Percocet 5/325mg Prepack#4) 1 btl TAKEHOME EDNOW ONE Stop: 04/30/18 18:08 Last Admin: 04/30/18 18:30 Dose: Not Given Departure - Departure Disposition: [facility] Clinical Impression: Bloody diarrhea Ulcerative colitis Qualifiers: Ulcerative colitis location: other ulcerative colitis Digestive disease complication type: with rectal bleeding Qualified Code(s): K51.811 - Other ulcerative colitis with rectal bleeding Condition: Good
[2018-04-30] MEDS ORDERED: LORazepam 2 MG/ML INJ IVP ONE (16:12)
[2018-04-30] MEDS ORDERED: OXYCODONE/APAP 5/325MG PREPACK#4 BTL TAKEHOME ONE (18:07)
[2018-04-30] MEDS ORDERED: oxyCODONE IR 5 MG TAB PO ONE (18:08)
[2018-04-30] MEDS ORDERED: ACETAMINOPHEN 325 MG TAB PO PRN (19:40)
[2018-04-30] MEDS ORDERED: ONDANSETRON 4 MG/2 ML VIAL IVP PRN (19:40)
[2018-04-30] MEDS ORDERED: ONDANSETRON DISINTEGRATING 4 MG TAB PO PRN (19:40)
[2018-04-30] MEDS ORDERED: TEMAZEPAM 15 MG CAP PO PRN (19:42)
--- NOTE | 2018-04-30 19:52 | PDGENHP ---
History and Physical - Chief Complaint rectal bleeding, abdominal pain - History of Present Illness 53yo M with history of UC, chronic pain on opioids here with 3 days of acutely worsening abdominal pain and blood in stool. Came to this ED on 03/28 for worsening abdominal symptoms, was discharged with prednisone 40mg daily. He saw his GI doctor on 04/05 and seemed to be doing better so they came up with plan to taper steroids. He was on 30mg prednisone recently but symptoms were flaring up. Characterized by mostly left sided crampy abdominal pain and 8-10 bloody bowel movements/day. Reports chills but no fevers. Some AM nausea but no emesis. Has lost about 10 pounds. He reports taking 80mg prednisone the last 2 days because his symptoms were so bad but wasn't getting relief so came to ED. When asked about his mesalamine and imuran, he reports taking but gives varying and inconsistent stories on dosages and how frequently he is supposed to take. He has not been eating or drinking very much because of his symptoms. In the ED , his hemoglobin level was normal at 15. He was mildly tachycardic. He received a dose of 125mg IV solumedrol. He was not feeling well enough to discharge so is being admitted for further evaluation. Of note, he was asking the ED provider for IV pain medications. Case discussed with Crystal Damon MD. Prior records reviewed, including hospitalizations from and 09/2017 for similar issues. 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 History Information - Allergies/Home Medication List Allergies/Adverse Reactions: morphine Allergy (Mild, Verified 04/30/18 15:16) Home Medications: Temazepam [Restoril 15 MG (*)] 15 mg PO HSPRN PRN 10/06/17 [Last Taken 09/29/17] Calcium Carbonate [Calcium] 500 mg PO DAILY 04/30/18 [Last Taken 04/30/18] Ferrous Sulfate [Ferrous Sulf 325 MG (*)] 325 mg PO BID 04/30/18 [Last Taken 09/10] Inulin/Chromium Picolinate [Fiber Select Gummies Tab Chew] 2 each PO DAILY 04/30 [Last Taken 04/30/18] Mesalamine [Canasa Suppository (*)] 1,000 mg [place] HS 04/30/18 [Last Taken 04/29/18 ] Vitamin B Complex [Vitamin B Complex (OTC)] 1 each PO DAILY 04/30/18 [Last Taken 04/30/18] azaTHIOprine [Imuran 50 mg (*)] 50 mg PO DAILY 04/30/18 [Last Taken 04/30/18] oxyCODONE IR [Oxycodone Ir (*)] 5 mg PO TID PRN 04/30/18 [Last Taken Unknown] predniSONE 80 mg PO DAILY 04/30/18 [Last Taken 04/29/18] traMADol [Ultram 50 mg (*)] 50 mg PO Q4 PRN 04/30/18 [Last Taken 04/30/18 04:00] I have personally reviewed and updated: family history, medical history, social history, surgical history - Past Medical History Additional medical history: ulcerative colitis, chronic pain on opioids, left clavicle fracture, GERD, candidal esophagitis, GIB - Surgical History Additional surgical history: several EGDs/colonoscopies, hernia repair, colon biopsies - Family History Positive for: non-pertinent Additional family history: negative for IBD - Social History Smoking Status: Never smoked Alcohol Use: None Drug Use: None Additional social history: Lives with girlfriend. 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 Review of Systems Review of Systems: ROS: 10pt was reviewed & negative except for what was stated in HPI & below Physical Exam Physical Exam: Temp Pulse Resp BP Pulse Ox 36.9 C 86 18 136/91 H 94 04/30/18 19:17 04/30/18 19:17 04/30/18 19:17 04/30/18 19:17 04/30/18 19:17 Constitutional: no apparent distress, not in pain, other (thin) Eyes: PERRL, anicteric sclera, EOMI Ears, Nose, Mouth, Throat: moist mucous membranes, hearing normal, ears appear normal, no oral mucosal ulcers Cardiovascular: regular rate and rhythym, no murmur, rub, or gallop, No edema Respiratory: no respiratory distress, no rales or rhonchi, clear to auscultation Gastrointestinal: tenderness (left side), No guarding, No distension Genitourinary: no bladder fullness, no bladder tenderness Skin: warm, normal color, no rashes or abrasions, no fluctuance, no induration, No mottled Musculoskeletal: full muscle strength, no muscle tenderness, normal joint ROM, no joint effusions Neurologic: AAOx3 Psychiatric: interacting appropriately, not anxious, not encephalopathic, thought process linear Lab Data & Imaging Review 04/30/18 15:40 04/30/18 15:40 WBC 9.98 10^3/uL (3.80-9.50) H 04/30/18 15:40 RBC 4.87 10^6/uL (4.40-6.38) 04/30/18 15:40 Hgb 15.6 g/dL (13.7-17.5) 04/30/18 15:40 Hct 44.6 % (40.0-51.0) 04/30/18 15:40 MCV 91.6 fL (81.5-99.8) 04/30/18 15:40 MCH 32.0 pg (27.9-34.1) 04/30/18 15:40 MCHC 35.0 g/dL (32.4-36.7) 04/30/18 15:40 RDW 13.0 % (11.5-15.2) 04/30/18 15:40 Plt Count 310 10^3/uL (150-400) 04/30/18 15:40 MPV 9.4 fL (8.7-11.7) 04/30/18 15:40 Neut % (Auto) 62.0 % (39.3-74.2) 04/30/18 15:40 Lymph % (Auto) 26.7 % (15.0-45.0) 04/30/18 15:40 [place] % (Auto) 9.5 % (4.5-13.0) 04/30/18 15:40 Eos % (Auto) 0.3 % (0.6-7.6) L 04/30/18 15:40 Baso % (Auto) 0.4 % (0.3-1.7) 04/30/18 15:40 Nucleat RBC Rel Count 0.0 % (0.0-0.2) 04/30/18 15:40 Absolute Neuts (auto) 6.19 10^3/uL (1.70-6.50) 04/30/18 15:40 Absolute Lymphs (auto) 2.66 10^3/uL (1.00-3.00) 04/30/18 15:40 Absolute Monos (auto) 0.95 10^3/uL (0.30-0.80) H 04/30/18 15:40 Absolute Eos (auto) 0.03 10^3/uL (0.03-0.40) 04/30/18 15:40 Absolute Basos (auto) 0.04 10^3/uL (0.02-0.10) 04/30/18 15:40 Absolute Nucleated RBC 0.00 10^3/uL (0-0.01) 04/30/18 15:40 Immature Gran % 1.1 % (0.0-1.1) 04/30/18 15:40 Immature Gran # 0.11 10^3/uL (0.00-0.10) H 04/30/18 15:40 Sodium 140 mEq/L (135-145) 04/30/18 15:40 Potassium 3.5 mEq/L (3.5-5.2) 04/30/18 15:40 Chloride 105 mEq/L (97-110) 04/30/18 15:40 Carbon Dioxide 27 mEq/l (22-31) 04/30/18 15:40 Anion Gap 8 mEq/L (6-14) 04/30/18 15:40 BUN 19 mg/dL (7-23) 04/30/18 15:40 Creatinine 0.9 mg/dL (0.7-1.3) 04/30/18 15:40 Estimated GFR > 60 04/30/18 15:40 Glucose 94 mg/dL (70-100) 04/30/18 15:40 Calcium 9.6 mg/dL (8.5-10.4) 04/30/18 15:40 Total Bilirubin 1.0 mg/dL (0.1-1.4) 04/30/18 15:40 Conjugated Bilirubin 0.3 mg/dL (0.0-0.5) 04/30/18 15:40 Unconjugated Bilirubin 0.7 mg/dL (0.0-1.1) 04/30/18 15:40 AST 13 IU/L (17-59) L 04/30/18 15:40 ALT 18 IU/L (21-72) L 04/30/18 15:40 Alkaline Phosphatase 66 IU/L (38-126) 04/30/18 15:40 Total Protein 7.0 g/dL (6.3-8.2) 04/30/18 15:40 Albumin 4.2 g/dL (3.5-5.0) 04/30/18 15:40 Lipase 109 IU/L (23-300) 04/30/18 15:40 Assessment & Plan Assessment: 53yo M with history of UC, chronic pain on opioids here with 3 days of acutely worsening abdominal pain and blood in stool not responding to PO steroids. Plan: 1. Acute abdominal pain, rectal bleeding: Possible UC flare. H/H normal, which is curious given the amount of bleeding he reports. Symptoms not responding to PO steroids. - check CT abdomen and GI PCR - s/p 125mg IV solumedrol in ED, hold on additional steroids for now - consult GI for consideration of endoscopy, will keep NPO after midnight - oxycodone and IV dilaudid PRN 2. Ulcerative colitis: Unclear if he is compliant with his imuran and mesalamine. He has previously seen Dr Chadwick and Dr Boo. - check inflammatory markers - steroids as above - continue imuran and mesalamine 3. Chronic pain: He is on oxycodone and tramadol at home. He is demonstrating some drug seeking tendencies, - Minimize narcotics as able, discussed with nursing. Will allow IV meds until have clearer picture as to etiology of pain and while NPO for possible procedure. 4. Chronic left clavicle fracture VTE ppx: SCDs Code: full Dispo: Admit under observation
[2018-04-30] MEDS ORDERED: HYDROmorphONE/DILAUDID 1 MG/ML INJ IVP PRN ×2 (20:28→20:51)
[2018-04-30] MEDS: FERROUS SULFATE 325 MG TAB PO SCH (21:29)
[2018-04-30] MEDS: HYDROmorphONE/DILAUDID 1 MG/ML INJ IVP PRN (21:29)
[2018-04-30] MEDS: MESALAMINE 1,000 MG SUPP PR SCH (21:31)
[2018-04-30] MEDS ORDERED: IOPAMIDOL (ISOVUE-300) 100 ML BTL ONE (21:32)
[2018-05-01] MEDS: NS 1,000 ML IV SCH ×3 (01:29→21:54)
[2018-05-01] MEDS: oxyCODONE IR 5 MG TAB PO PRN ×4 (02:14→21:55)
[2018-05-01] MEDS: HYDROmorphONE/DILAUDID 1 MG/ML INJ IVP PRN ×2 (05:20→11:38)
[2018-05-01 05:40] LABS: PLATELET COUNT 294 10^3/uL (150-400)
[2018-05-01 05:48] LABS: INR 1.14 (0.83-1.16); PROTIME(PATIENT) 14.8 SEC (12.0-15.0)
[2018-05-01] MEDS ORDERED: methylPREDNISolone SOD SUCC 125 MG/2 ML VIAL IVP SCH (09:00)
--- NOTE | 2018-05-01 09:22 | ASMTCMCOM ---
CM Note CM Note Notes: Pt is a 53 y/o man admitted for inflammation colitis and bleeding. It is uncertain if pt will have any d/c needs at this time. Pt will most likely d/c independent. 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 CM made a referral to [facility]. CM available for needs. Plan: Independent Date Signed: 05/01/2018 09:22 AM Electronically Signed By:QUINTEN Stroud
[2018-05-01] MEDS: FERROUS SULFATE 325 MG TAB PO SCH ×2 (09:42→21:59)
[2018-05-01] MEDS: azaTHIOprine 50 MG TAB PO SCH (09:42)
[2018-05-01] MEDS: BENEFIBER/NUTRISOURCE FIBER PKT 1 EACH PO SCH (09:43)
[2018-05-01] MEDS: methylPREDNISolone SOD SUCC 40 MG/ML VIAL IVP SCH ×3 (13:18→22:00)
--- NOTE | 2018-05-01 17:38 | HOSPPROG ---
Hospitalist Progress Note Assessment/Plan: The patient is a 53-year-old male with PMH ulcer colitis who was admitted for an acute ulcerative colitis flare. ASSESSMENT/PLAN: Acute ulcerative colitis flare Severe abdominal pain, 2/2 above Hematochezia, 2/2 above Acute dehydration, 2/2 above -Discussed w/ maxillofacial surgeon GI Dr. Evans who recommends to continue steroid and start Lialda. No scope while pt is in acute flare. -Continue IV fluids. -Diet as tolerated. -prn analgesics. VTE prophylaxis: Lovenox Code Status: Full code Status: Changing to Inpatient for > 2 midnight stay for uncontrolled pain, persistent hematochezia, and dehydration requiring IV fluids Disposition: medsurg ____ SUBJECTIVE: Today pt continues to have abd pain. Feels very weak/tired. OBJECTIVE: Physical Exam: General: The patient is a male who is alert and in no acute distress. HEENT: normocephalic, extraocular movements intact, conjunctivae clear. Mucous membranes dry. Neck: trachea midline, no visible masses. CV: +S1/S2, RRR, no MRG. Resp: unlabored, CTAB no RRW. Abd: soft and nondistended. Bowel sounds present. Diffuse tenderness throughout. Musculoskeletal: Normal muscle tone/bulk. Neuro: cranial nerves II XII grossly intact. Intact gross motor and sensory function. Psych: Appropriate mood and appropriate affect. Skin: No pallor. No petechiae. Heme/lymph: No peripheral edema at bilateral ankles. Labs/Imaging/Other Tests: Personally reviewed/interpreted. Objective: Vital Signs Temp Pulse Resp BP Pulse Ox 36.9 C 63 16 145/91 H 93 05/01/18 15:21 05/01/18 15:21 05/01/18 15:21 05/01/18 15:21 05/01/18 15:21 Microbiology 05/01/18 09:45 Gastrointestinal Tract Panel (PCR) - Final Stool No Organism Detected By Pcr Laboratory Results 05/01/18 05:30 04/30/18 05/01/18 05/02/18 05:59 05:59 05:59 Intake Total 1150 Output Total 350 Balance 800 PT 14.8 SEC (12.0-15.0) 05/01/18 05:30 INR 1.14 (0.83-1.16) 05/01/18 05:30 - Time Spent With Patient Time Spent with Patient: greater than 35 minutes Time Spent with Patient: Greater than 35 minutes spent on this patients care, greater than 50% of time spent counseling, educating, and coordinating care regarding the above mentioned plan. ICD10 Worksheet Patient Problems: Problems Problem Status Onset Bloody diarrhea Acute Ulcerative colitis Acute Abscess Acute Gastrointestinal bleed Acute Methicillin resistant Staphylococcus aureus infection Acute
[2018-05-01] MEDS: MESALAMINE 800 MG TAB.DR PO SCH (21:54)
[2018-05-01] MEDS: MESALAMINE 1,000 MG SUPP PR SCH (22:03)
[2018-05-02] MEDS ORDERED: LORazepam 0.5 MG TAB PO ONE (04:32)
[2018-05-02] MEDS ORDERED: RANITIDINE SYRUP 15 MG/1 ML UDSYR PO ONE (04:32)
[2018-05-02] MEDS: methylPREDNISolone SOD SUCC 40 MG/ML VIAL IVP SCH (05:43)
[2018-05-02] MEDS: NS 1,000 ML IV SCH (07:54)
[2018-05-02] MEDS ORDERED: RANITIDINE HCL 150 MG/10 ML UDCUP PO SCH (09:00)
[2018-05-02] MEDS: MESALAMINE 800 MG TAB.DR PO SCH (09:16)
[2018-05-02] MEDS: BENEFIBER/NUTRISOURCE FIBER PKT 1 EACH PO SCH (09:16)
[2018-05-02] MEDS: azaTHIOprine 50 MG TAB PO SCH (09:16)
[2018-05-02] MEDS: FERROUS SULFATE 325 MG TAB PO SCH (09:16)
[2018-05-02] MEDS: oxyCODONE IR 5 MG TAB PO PRN (09:20)
--- NOTE | 2018-05-02 10:18 | GCON ---
DATE OF CONSULTATION: 05/02/2018 REFERRING PHYSICIAN: Aneta Paz DO REASON FOR CONSULTATION: Ulcerative colitis flare. CHIEF COMPLAINT: Hematochezia/left lower quadrant abdominal pain. HISTORY OF PRESENT ILLNESS: The patient is a 53-year-old male with a history of left-sided ulcerative colitis diagnosed initially in 1994 who presents to [facility] with complaints of bloody stools and left lower quadrant abdominal pain. He has been on steroids several times in the last 6 months and was admitted to [facility] on 10/06/2017, for a flare. He had a colonoscopy performed on 10/07/2017, where he was found to have mild ulcerative colitis. Biopsies were taken. He has had significant outpatient symptoms and had been placed on Imuran, as well as oral mesalamine. He has also been on Canasa and hydrocortisone suppositories, and there are plans for him to start Humira. It appears that he has been noncompliant with his medications. He states for the last month he has been having increasing symptoms where he will go approximately 3-4 times each day, with significant blood in his stools. He also complains of significant sharp, crampy pain in his left lower quadrant , going to his rectum. This pain is exacerbated by oral intake and stress with no alleviating factors. I am being asked by Dr. Paz to evaluate the patient in consultation regarding his possible flare of left-sided ulcerative colitis. PAST MEDICAL HISTORY: 1. Left-sided ulcerative colitis diagnosed in 1994, in [place]. 2. Iron-deficiency anemia. 3. Chronic pain, on opioids. 4. Gastroesophageal reflux disease. 5. Left clavicle fracture. PAST SURGICAL HISTORY: Hernia repair. ALLERGIES: Morphine MEDICATIONS: Imuran, prednisone, oral mesalamine?, Canasa, Imuran, Iron, Tramadol FAMILY HISTORY: No history of inflammatory bowel disease. SOCIAL HISTORY: No significant alcohol or tobacco use. REVIEW OF SYSTEMS: A 12-point comprehensive review of systems was asked. Pertinent positives and negatives per HPI. PHYSICAL EXAM: VITAL SIGNS: Blood pressure 151/98, respiratory rate 16, temperature 36.8. GENERAL: Awake, alert, and oriented x3, in no distress. HEENT: Anicteric. Moist mucosa. NECK: No JVD. CARDIOVASCULAR: Regular rate and rhythm, positive S1, S2. No murmurs or gallops are appreciated. LUNGS : Clear to auscultation bilaterally, without wheezes or rhonchi. ABDOMEN: Soft. Mild tenderness in the left lower quadrant. Positive bowel sounds. No guarding or rebound. EXTREMITIES: No clubbing or edema. NEUROLOGIC: 2 through 12 grossly intact. PSYCH: Normal affect. SKIN: No rash. LABORATORY DATA: WBC is 8.74, hemoglobin 15.2, ESR 10, platelets 294. INR 1.14 , lipase 109. C-reactive protein less than 5, AST 13, ALT 18, BUN 19, creatinine 0.9. ASSESSMENT AND PLAN: 1.Ulcerative colitis- left-sided. Is complaining of blood, as well as significant pain. Improving. Does have anemia from his UC. At this time, I recommend to taper his IV steroids to oral steroids. Would also recommend to start oral mesalamine, as well as Canasa suppositories. I had a long discussion with the patient regarding possible treatment modalities and would recommend a flexible sigmoidoscopy before starting his Humira. Will check ESR and CRP. Will discuss this with Neelima Velez, who sees him as an outpatient in her office. Thank you very much for this consultation. /[id number]/MODL MTDD
--- NOTE | 2018-05-02 10:22 | SOAPPROG ---
SOAP Progress Note Assessment/Plan: Assessment: Plan: 05/02/18 09:50 GI note See dictated consult for details. Flare of ulcerative colitis. Left sided. CRP and ESR not elevated. Recommend to add oral 5-ASA with suppositories. Ok to change to oral steroids as well. Needs outpatient follow up this week. Would recommend flex sig as outpatient before starting Humira. Objective: Vital Signs Temp Pulse Resp BP Pulse Ox 36.8 C 77 16 151/98 H 97 05/02/18 07:45 05/02/18 07:45 05/02/18 07:45 05/02/18 07:45 05/02/18 07:45 Microbiology 05/01/18 09:45 Gastrointestinal Tract Panel (PCR) - Final Stool No Organism Detected By Pcr Laboratory Results 05/01/18 05:30 05/01/18 05/02/18 05/03/18 05:59 05:59 05:59 Intake Total 1150 Output Total 350 0 Balance 800 0 PT 14.8 SEC (12.0-15.0) 05/01/18 05:30 INR 1.14 (0.83-1.16) 05/01/18 05:30 ICD10 Worksheet Patient Problems: Problems Problem Status Onset Abscess Acute Methicillin resistant Staphylococcus aureus infection Acute Ulcerative colitis Acute Gastrointestinal bleed Acute Bloody diarrhea Acute
--- NOTE | 2018-05-02 11:07 | ASMTLACE ---
REYES Length of stay for Answers: 2 days current admission Acuity / Level of Answers: No Care: Did the patient have an inpatient admission? Comorbidities - select Answers: Opioid dependence all that apply / Chronic pain Other Notes: Ulcerative colitis; NIDIA D # of Emergency department Answers: 3-4 visits in the last 6 months Social determinants Answers: Mental health diagnosis (anxiety, depression, pers onality disorders, etc.) Score: 13 Date Signed: 05/02/2018 11:06 AM Electronically Signed By:QUINTEN Stroud
[2018-05-02 11:08] VITALS: BP 134/96
--- NOTE | 2018-05-05 12:20 | PDDCSUM ---
Discharge Summary Discharge Summary: Date of Admission: 04/30/2018 Date of Discharge: 05/02/2018 Discharge Diagnoses: Ulcerative colitis flare, resolved Admission Diagnoses: Acute abdominal pain Rectal bleeding Possible Ulcerative colitis flare Ulcerative colitis Chronic pain Chronic left clavicle fracture Consultants: GI-Dr. Vish Evans Hospital Course: The patient is a 53-year-old male with a history of ulcer colitis and chronic pain, on opiates, who presented to the hospital after 3 days of worsening abdominal pain and blood in stool. He had arrived to the ED on March 28 for the same issue and received Solumedrol 125mg IV. He had seen his GI specialist on the 05 of April and seem to be doing better, so they had set a plan to taper steroids. Patient said that his symptoms flared up as a result of the steroid taper. He felt frustrated with his ulcer colitis symptoms. He reported up to 10 bloody bowel movements a day. He denied liquid stool or diarrhea. He gave inconsistent and varying reports of the medications he had been taking for ulcer colitis. GI was consulted for additional recommendations. Patient only had 1-2 bowel movements a day in the hospital and no bowel movement on the day of discharge. His ESR and CRP came back low, indicating less likelihood of an acute ulcerative colitis flare. He was often asking for IV Dilaudid, saying his pain was not in control. Because he was medically stable, he was discharged home with recommendation to follow up with his outpatient GI specialist. Dr. Evans recommended the patient be put on 30 mg of prednisone twice a day and additional tapering can be managed by the patient's PA. The patient reported that he was not taking oral mesalamine, which was unusual. He is therefore being given a prescription for Pentasa. The patient claimed that he was going to be put on Humira because he failed all other medications and wanted to stay in the hospital to get tests prior to starting Humira and possibly even start Humira in the hospital. He was told that this all needs to be arranged in the outpatient setting per the discretion of his GI specialist, as biologics are complex drugs that require close followup. Physical Exam: Gen - alert, in NAD, comfortable. Abd- SND. Mildly tender to palpation throughout. Condition: Stable. Discharged to: Home. Pertinent tests/labs/imaging: CBC on discharge- WBC 8.74, Hgb 15.2 ESR 10. CRP < 5.0. Lipase 109. AST 13 ALT 18 alkaline phosphatase 66 total bilirubin 1 conjugated bilirubin 0.3. Medications: Please see med rec form. New medications given: Prednisone 30 mg orally twice a day #40. Ranitidine 150 mg orally twice a day, Pentasa 1000 mg orally 4 times a day, oxycodone 5 mg orally 3 times a day as needed for severe pain #20. Special instructions: Follow up with GI within 1 week to discuss adjusting meds [facility] for Ulcerative Colitis. They will do their outpatient workup as needed. Return to ED for worsening symptoms. Resume all home medications, except prednisone has changed to 30mg twice a day ( new Rx sent to [facility] on ). Giving a new Rx for oral mesalamine in case you do not have it at home. Follow up: Yasmin Velez PAC with GI [facility] in 3-5 days. PCP Verna Washburn in 1 week. > 30 minutes of total time was spent on counseling and coordination of care for this patient's discharge.
== END 2018-05-02 15:01 | disposition home or self-care (01) ==
LOC: F3E 20:40
PROVIDERS: ADMIT Internal Medicine; ATTEND Internal Medicine
DX: K51.018 Ulcerative (chronic) pancolitis with other complication (principal); K92.1 Melena; D50.9 Iron deficiency anemia, unspecified; G89.29 Other chronic pain; K21.9 Gastro-esophageal reflux disease without esophagitis; F11.20 Opioid dependence, uncomplicated; E86.0 Dehydration; Z87.81 Personal history of (healed) traumatic fracture
CPT/HCPCS: 74177; 96361; 96374; 96375; 96376; 99285; G0378; J1170; J2060; J2920; J2930; J7500; Q9967